=== PATIENT | female | born 1960 | race Caucasian/White ===

== ENCOUNTER → 2017-12-27 15:55 | Outpatient (CLI) | payer OTHER, SELFPAY ==
--- NOTE | 2017-12-27 15:58 | HPBD_ITS ---
STUDY: DUAL ENERGY X-RAY ABSORPTIOMETRY / DXA REASON FOR EXAM: Female, 57 years old. The patient is postmenopausal. Loss of height. TECHNIQUE: Bone Mineral Density (BMD) measurements of lumbar spine and bilateral hips were obtained. COMPARISON: None. FINDINGS: Lumbar Spine (L1-L4): g/cm2 (1.080) / T-score (-0.8) / Z-score (0.3) Findings are suggestive of normal bone density with a low fracture risk. Left Femur Total: g/cm2 (0.785) / T-score (-1.8) / Z-score (-0.9) Left Femoral Neck: g/cm2 (0.730) / T-score (-2.2) / Z-score (-1.0) Right Femur Total: g/cm2 (0.802) / T-score (-1.6) / Z-score (-0.8) Right Femoral Neck: g/cm2 (0.766) / T-score (-2.0) / Z-score (-0.8) HPBD/Dexa Bone Density Study (HP) IMPRESSION: The patient is considered osteopenic as outlined below according to World [employer] Organization (WHO) criteria with a moderate fracture risk. Reference Information: The T-score is the number of standard deviations above or below the standard which is normal for young adults at their peak bone mineral density. The World Health Organization (WHO) interprets the T-scores as follows: Above -1 Normal bone density Between -1 and -2.5 Osteopenia Equal to / or below -2.5 Osteoporosis As a practical clinical guideline, osteopenia may be graded as follows: Mild -1 through -1.5 Moderate -1.6 through -2.0 Severe -2.1 through -2.4 The Z-score is the number of standard deviations above or below age-matched controls. A Z-score of less than -1.5 would be considered abnormal. References: 1. NIH Osteoporosis and Related Bone Diseases http://www.osteo.org 2. International Society for Clinical Densitometry http://www.iscd.org 3. National Osteoporosis Foundation http://www.nof.org Electronically Signed: Jevon Norwood MD at 9:02 EST Tel [phone], Service support ,
== END ==
PROVIDERS: Family Provider Family Medicine; PCP Family Medicine; Visit Provider Family Medicine
DX: Z78.0 Asymptomatic menopausal state (principal)
CPT/HCPCS: 77080

== ENCOUNTER → 2018-05-24 16:00 | Outpatient (CLI) | payer OTHER, SELFPAY ==
--- NOTE | 2018-05-24 16:03 | RAD_ITS ---
STUDY: X-RAY - RIGHT FOOT CLINICAL: Female, 58 years old. Pain TECHNIQUE: 3 view(s) of the foot. COMPARISON: None. FINDINGS: There are hammertoe deformities of the fourth and fifth toes. There are no acute fractures. The soft tissues are normal. Electronically Signed: Ashish Cooper, at 7:43 EDT Tel , Service support , RAD/Foot min 3 Views
--- NOTE | 2018-05-24 16:03 | RAD_ITS ---
STUDY: X-RAY - LEFT FOOT CLINICAL: Female, 58 years old. Pain TECHNIQUE: 3 view(s) of the foot. COMPARISON: None. FINDINGS: There is a small plantar calcaneal spur. Normal visualized subtalar, talonavicular, calcaneocuboid, tarsal and tarsometatarsal articulations. Normal metatarsi. Normal metatarsophalangeal joint of the great toe. Normal tibial and fibular sesamoid bones. Normal interphalangeal joint of the great toe. Normal phalanges of the great toe. Normal second through fifth metatarsophalangeal joints. Normal interphalangeal joints and phalanges of the lesser toes. The soft tissue structures are unremarkable. RAD/Foot min 3 Views IMPRESSION: Small plantar calcaneal spur. No fracture Electronically Signed: Ashish Cooper, at 7:40 EDT Tel , Service support ,
--- NOTE | 2018-05-24 16:03 | RAD_ITS ---
STUDY: X-RAY - RIGHT HAND REASON FOR EXAM: Female, 58 years old. Pain TECHNIQUE: 3 view(s) of the hand. COMPARISON: None. FINDINGS: Degenerative changes of the first carpal metacarpal joint. The rest of the joints of the hand normal. The bones are also normal. There are no fractures.. RAD/Hand Min 3 Views IMPRESSION: Degenerative changes involving the first carpometacarpal joints. No fracture Electronically Signed: Ashish Cooper, at 7:32 EDT Tel , Service support ,
--- NOTE | 2018-05-24 16:03 | RAD_ITS ---
STUDY: X-RAY - LEFT HAND REASON FOR EXAM: Female, 58 years old. Injury TECHNIQUE: 3 view(s) of the hand. COMPARISON: None. FINDINGS: Normal radiocarpal articulation. Normal distal radioulnar joint. Normal visualized carpal bones. Normal carpal articulations Normal carpometacarpal articulation of the thumb. Normal second through fifth carpometacarpal joints. Normal metacarpi. Normal metacarpophalangeal joint of the thumb. Normal interphalangeal joint of the thumb. Normal proximal and distal phalanges of the thumb. Normal metacarpophalangeal joints of the second through fifth fingers. Normal proximal and distal interphalangeal joints of the second through fifth fingers. Normal phalanges of the second through fifth fingers. The soft tissue structures are unremarkable. RAD/Hand Min 3 Views IMPRESSION: Normal x-ray examination of the hand. No fracture Electronically Signed: Ashish Cooper, at 7:44 EDT Tel , Service support ,
== END ==
PROVIDERS: Family Provider Internal Medicine; PCP Internal Medicine; Visit Provider Internal Medicine
DX: M79.671 Pain in right foot (principal); M79.672 Pain in left foot; M19.049 Primary osteoarthritis, unspecified hand
CPT/HCPCS: 73130; 73630

== ENCOUNTER → 2018-06-13 15:23 | Outpatient (CLI) | payer OTHER, SELFPAY | PROVIDERS: Family Provider Family Medicine; PCP Family Medicine; Visit Provider Internal Medicine | DX: Z12.31 Encounter for screening mammogram for malignant neoplasm of breast (principal) | CPT/HCPCS: 77063; 77067 ==

== ENCOUNTER 2018-06-14 15:26 | Outpatient (RCR) | payer OTHER, SELFPAY ==
--- NOTE | 2018-08-05 11:15 | HP.PTEVAL_ITS ---
Patient's Visit Information VASILIY LUI is a 58 year old F referred to Physical Therapy by eNss Duggan DO with a diagnosis of Chronic low back pain. Date of Evaluation: 08/05/18 Physical Therapist: Mick Haley - Visit Plan Frequency: 2x /Week Duration: 4 Weeks Plan: Start with manual PT, stretching, postural education and lumbar ROM exercises. Progress functional strengthening as tolerated. - Subjective Subjective: Pt. is here today for her initial evaluation with diagnosis of chronic low back pain. Pt. reprots no mechanis of injury, but has had back pain for a number of years. Pt. does have osteo porosis. Pt. reprots low back pain with out radiation of symptoms. Pt. reports walking, standing, lifting twisting all bother her. Pt. reports decreased symptoms with supine lying down. Pt. reports having benefit with massage therapy as well. Pt. denies N/T in either LE and has no Le weakenss. Pt. reports no changes in B/B. Pt. has not had any imaging down either. Pt. is hopeful to reduce symptoms in order to get back to all recreational activites without lmiitations. - Pain lumbar spine Pain Intensity (Out of 10): 3 Pain Intensity Range: 1, 5 - Objective POSTURE: Pt. has decreased lumbar lordosis. Pt. has normal iliac creast heights. Pt. has normal wt. shift in stance. Pt. has rounded shoulders and overall slouched posture in sitting and standing. PALPATION: Pt. has tenderness along lumbar paraspinals, mild pain with spring testing of L2-L5 with hypombility noted. NEURO: Pt. has 2+ DTR of BLEs, pt. has normal sensation of bilateral LEs. Pt. is able to rise on heels and toes without issues, with balance aide. ROM: Pt. has normal hip and knee ROM bilaterally. Tightness noted in B HS. Lumbar spine: flexion- min loss increase NW, ext min loss increase NW, SB min loss bilat increase NE, rotation min loss bilat incerase NW. MMT: Pt. has 5/5 strength throughout bilateral LEs. Core strength- poor. GAIT: Pt. has normal gait pattern, except has increased lateral hip sway, no contralateral hip drop. STAIRS: Pt. has normal reciprocal pattern, but requries BHR to complete. - Goals Goal 1:: Pt. to be I with HEP. Goal Time Frame: 4-6 Weeks Goal 2:: Pt. to have increased lumbar ROM by 25% in all directions without increase in symptoms. Goal Time Frame: 4-6 Weeks Goal 3:: Pt. to sleep throughout the night without increase in symptoms. Goal Time Frame: 4-6 Weeks Goal 4:: Pt. to complete all recreational activities without limitations. Goal Time Frame: 4-6 Weeks Goal 5:: Pt. to walk unlimited distances without increase in symptoms. Goal Time Frame: 4-6 Weeks Goal 6:: Pt. to demonstrate improved posture throughout PT session indicating improved postural awareness. Goal Time Frame: 4-6 Weeks - Rehabilitation Potential Physical Therapy Diagnosis: Pt. has signs and symptoms consistent with chronic low back pain. Pt. has no radiating symptoms, and presents with more muscular pathology. Pt. would benefit from PT to reduce symptoms, decrease muscle tension, improve posture in order to get back to all recreational activities without limitations. - Anticipated Interventions Patient/Client Instruction: Educate patient on: Condition, Plan of Care, Risk Factors, Benefits of Fitness Program For the Purpose of:: To improve health and function, To foster healthy habits, To improve decision making, To facilitate caregiver knowledge, To improve self management, To prevent re-injury, To improve ability to perform tasks related to life management, To improve tolerance to ADL's Therapeutic Exercise to Include: Strength training, Power training, Endurance training, Body mechanics, Postural training, Flexibilty training, Passive ROM, Active ROM, Dynamic Lumbar Stabilization, Fidel Exercises For the Purpose of:: To decrease pain, To increase ROM, To improve nutrient delivery to tissue, To increase oxygenation perfusion, To improve muscle performance and motor function, To improve ability of physical actions for home/community/work/leisure, To improve health of tissue, To decrease soft tissue restriction Manual Therapy Techniques to Include: Mobilization For the Purpose of:: To decrease pain, To increase ROM, To improve nutrient delivery to tissue, To increase oxygenation perfusion, To improve muscle performance and motor function, To improve health of tissue, To decrease soft tissue restriction IF ES: Yes Thermo therapy (hot pack): Yes Ultrasound (thermal/non thermal): Yes For the Purpose of:: To decrease pain, To decrease swelling/inflammation, To increase ROM, To improve nutrient delivery to tissue, To improve muscle performance and motor function, To improve health of tissue, To decrease soft tissue restriction Thank you for the opportunity to evaluate your patient. For Medicare and Medicare HMO plans, please review the plan of care and approve it. It will need to be FAXED BACK to us at [phone] for Medicare purposes. Please let me know if there are questions or concerns regarding this plan of care. Physician Signature: Date:_
--- NOTE | 2018-08-16 09:17 | HP.PT.NRP ---
HP - Discharge Summary (1) - Patient Information VASILIY LUI was seen in my office for initial evaluation on 08/05/18. The following Plan of Care was established for this patient: Initial Frequency: 2x /Week Initial Duration: 4 Weeks - Anticipated Interventions Patient/Client Instruction: Educate patient on: Condition, Plan of Care, Risk Factors, Benefits of Fitness Program For the Purpose of:: To improve health and function, To foster healthy habits, To improve decision making, To facilitate caregiver knowledge, To improve self management, To prevent re-injury, To improve ability to perform tasks related to life management, To improve tolerance to ADL's Therapeutic Exercise to Include: Strength training, Power training, Endurance training, Body mechanics, Postural training, Flexibilty training, Passive ROM, Active ROM, Dynamic Lumbar Stabilization, Fidel Exercises For the Purpose of:: To decrease pain, To increase ROM, To improve nutrient delivery to tissue, To increase oxygenation perfusion, To improve muscle performance and motor function, To improve ability of physical actions for home/community/work/leisure, To improve health of tissue, To decrease soft tissue restriction Manual Therapy Techniques to Include: Mobilization For the Purpose of:: To decrease pain, To increase ROM, To improve nutrient delivery to tissue, To increase oxygenation perfusion, To improve muscle performance and motor function, To improve health of tissue, To decrease soft tissue restriction IF ES: Yes Thermo therapy (hot pack): Yes Ultrasound (thermal/non thermal): Yes For the Purpose of:: To decrease pain, To decrease swelling/inflammation, To increase ROM, To improve nutrient delivery to tissue, To improve muscle performance and motor function, To improve health of tissue, To decrease soft tissue restriction This patient was last seen in our office 06/14/18. Pertinent comments regarding their Physical therapy will appear below: Pt. was seen for her chronic low back pain in PT. Pt. was seen for her initial evaluation, but not seen since. Pt. will be DC from PT at this point in time. At this point I will be discontinuing this patient from physical therapy. I would be happy to see this patient again in the future if found appropriate by the physician. Thank you! Mick Haley
== END 2018-06-14 19:00 | disposition home or self-care (01) ==
LOC: PT 15:26
PROVIDERS: Family Provider Internal Medicine; PCP Internal Medicine; Visit Provider Internal Medicine
DX: M54.9 Dorsalgia, unspecified (principal); G89.29 Other chronic pain
CPT/HCPCS: 97162

== ENCOUNTER → 2018-08-14 16:35 | Outpatient (CLI) | payer OTHER, SELFPAY ==
[2018-08-21 13:12] LABS: HPV Reflexed? NOT INDICATED
== END ==
PROVIDERS: Visit Provider Obstetrics & Gynecology
DX: Z12.4 Encounter for screening for malignant neoplasm of cervix (principal)
CPT/HCPCS: 88175; G0145

== ENCOUNTER → 2019-02-25 14:40 | Outpatient (CLI) | payer OTHER, SELFPAY ==
--- NOTE | 2019-02-25 14:49 | CT_ITS ---
STUDY: CT BRAIN WITH AND WITHOUT CONTRAST REASON FOR EXAM: Female, 58 years old. New Onset of migraine, hypertension recently. Asthma RADIATION DOSAGE (If Supplied By Facility): CTDIvol = ( 44.99 ) mGy, DLP = ( 1513.48 ) mGycm TECHNIQUE: Transaxial CT imaging of the brain was performed pre and post contrast administration. The examination was performed with intravenous administration of 50 IV Isovue 370. Individualized dose optimization techniques were used for this CT. COMPARISON: None. FINDINGS: Normal soft tissue structures. Normal calvarium. Normal size ventricles and extra-axial spaces for the patient's age. Left periventricular white matter low-attenuation likely remote infarct. Normal basal ganglia and thalami. Normal brainstem. Normal cerebellum. There is no intracranial hemorrhage. There are no findings of an acute ischemic infarction. Normal visualized paranasal sinuses. The bilateral mastoid air cells are clear. 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 Otherwise age-appropriate CT examination brain with and without contrast. Electronically Signed: Cecily Arnett MD at 6:45 EDT , Service support ,
== END ==
PROVIDERS: Family Provider Internal Medicine; PCP Internal Medicine; Referring Provider Internal Medicine; Visit Provider Internal Medicine
DX: G43.909 Migraine, unspecified, not intractable, without status migrainosus (principal)
CPT/HCPCS: 70470; Q9967

== ENCOUNTER → 2019-05-20 15:41 | Outpatient (CLI) | payer OTHER, SELFPAY ==
--- NOTE | 2019-05-20 16:00 | MRI_ITS ---
STUDY: MRI BRAIN WITH AND WITHOUT CONTRAST REASON FOR EXAM: Female, 59 years old. Left sided weakness TECHNIQUE: Standardized multiplanar fat and water weighted pulse sequences were obtained. 13 IV Dotarem was administered for the contrast portion of the examination. COMPARISON: February 25, 2019 FINDINGS: Normal size of the ventricles and extra-axial spaces for the patient's age. Minor periventricular white matter ischemic changes are seen without mass effect or restricted diffusion.. Normal bilateral basal ganglia. Normal thalami. There is no extra-axial fluid accumulation. Normal flow voids within the major intracranial circulation suggesting patency by spin echo criteria. Normal venous enhancement. There is no enhancing intra-axial or extra-axial abnormality. Normal sella turcica, pituitary gland, infundibular stalk, optic chiasm and hypothalamus. Normal tectal plate and pineal gland. Normal midbrain, hermelinda and medulla. Normal cerebellum. Normal basal cisterns. Normal bilateral temporal bones. Normal bilateral internal auditory canals. No demonstrated orbital abnormality, within the constraints of a routine brain study. Normal visualized paranasal sinuses. Normal calvarium and skull base. Normal visualized soft tissue structures. Normal visualized upper cervical spine. MRI/Brain W/WO Contrast IMPRESSION: Minor periventricular white matter chronic ischemic changes without evidence for acute infarct. No abnormal enhancement following contrast administration Electronically Signed: Mike Basilio MD at 16:53 EDT , Service support ,
== END ==
PROVIDERS: Family Provider Internal Medicine; PCP Internal Medicine; Referring Provider Internal Medicine; Visit Provider Internal Medicine
DX: Z86.73 Personal history of transient ischemic attack (TIA), and cerebral infarction without residual deficits (principal)
CPT/HCPCS: 70553; A9575

== ENCOUNTER 2019-05-23 15:30 | Outpatient (RCR) | payer OTHER, SELFPAY ==
--- NOTE | 2019-04-08 16:08 | HP.PTEVAL ---
Patient's Visit Information VASILIY LUI is a 59 year old F referred to Physical Therapy by Britt Mace with a diagnosis of L achilles tendonitis and planarfasciaitis. Date of Evaluation: 04/08/19 Physical Therapist: Emeka Gomez, PT, ATC - Visit Plan Frequency: 2x /Week Duration: 4-6 Weeks Plan: R gastroc and soleus stretching, DTR, foam roller, stick roll out, US, and Ionto with Dex - Subjective Findings: Pt reports her R heel has been sore 4 mos. Pt reports she has had pain in the past, but notes this is the worst her pain has been. Pt reports she is very active as she walks and swims everyday. 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 Pt reports she always has pain after these ex's. Pt notes if she travels and takes some time off, her pain will get better. Pt notes no tingling or numbness in R LE. Pt reports ice helps with pain, but she doesnt ice often. Pt reports pain is always worse in the AM. Difficulty with getting to sleep secondary to pain. Pt has had xrays, which revealed a bone spur. 1/10 pain at rest, 8/10 at worst (while walking) - Pain R heel pain Pain Intensity (Out of 10): 1 Pain Intensity Range: 8 - Objective Neuro: B LE sensation is WNL to light touch. B patellar reflex= 2/3. Palpation: Pt is very tender on the calcaneal tubercle and medial/lateral heel. Enlarged calcaneal tubercle. ROM: L ankle DF= 2, PF= 65 degrees; R ankle DF= 2, PF= 60. MMT: B ankles 5/5 throughout. Gait: Pt has a rigid arch. Pt is pes cavus, and has late pronation with ambulation - Goals Goal 1:: Decrease R heel pain x 50 % to aid with sleep Goal Time Frame: 4-6 Weeks Goal 2:: Increase R ankle DF ROM x 10 degrees to aid with decreasing pain Goal Time Frame: 4-6 Weeks Goal 3:: I with HEP Goal Time Frame: 4-6 Weeks - Rehabilitation Potential Physical Therapy Diagnosis: Pt has limited DF ROM in R ankle and pain in R heel secondary to R plantarfasciatis and achilles tendonitis Rehabilitation Potential: Good - Anticipated Interventions Patient/Client Instruction: Educate patient on: Condition, Plan of Care For the Purpose of:: To improve self management Therapeutic Exercise to Include: Strength training, Flexibilty training, Passive ROM, Active ROM For the Purpose of:: To decrease pain, To increase ROM Ultrasound (thermal/non thermal): Yes For the Purpose of:: To decrease pain Thank you for the opportunity to evaluate your patient. For Medicare and Medicare HMO plans, please review the plan of care and approve it. It will need to be FAXED BACK to us at [phone] for Medicare purposes. For Medicare only, by signing this I certify the plan of care. Please let me know if there are questions or concerns regarding this plan of care. Physician Signature: Date:
--- NOTE | 2019-08-19 10:40 | HP.PT.NRP ---
HP - Discharge Summary (1) - Patient Information VASILIY LUI was seen in my office for initial evaluation on 04/08/19. The following Plan of Care was established for this patient: Initial Frequency: 2x /Week Initial Duration: 4-6 Weeks - Anticipated Interventions Patient/Client Instruction: Educate patient on: Condition, Plan of Care For the Purpose of:: To improve self management Therapeutic Exercise to Include: Strength training, Flexibilty training, Passive ROM, Active ROM For the Purpose of:: To decrease pain, To increase ROM Ultrasound (thermal/non thermal): Yes For the Purpose of:: To decrease pain This patient was last seen in our office . Pertinent comments regarding their Physical therapy will appear below: Pt was treated for 8 PT visits through the date of 05/23/19. Pt has not returned through todays date and is therefore discontinued at this time. At this point I will be discontinuing this patient from physical therapy. I would be happy to see this patient again in the future if found appropriate by the physician. Thank you! Emeka Gomez, PT, ATC
== END 2019-05-23 19:00 | disposition home or self-care (01) ==
LOC: PT 15:30
PROVIDERS: Family Provider Internal Medicine; PCP Internal Medicine; Referring Provider Podiatrist; Visit Provider Podiatrist
DX: M76.61 Achilles tendinitis, right leg (principal); M77.31 Calcaneal spur, right foot
CPT/HCPCS: 97033; 97035; 97161

== ENCOUNTER → 2019-05-26 09:01 | Outpatient (CLI) | payer OTHER, SELFPAY ==
--- NOTE | 2019-05-26 09:06 | ECHOD_ITS ---
Reason For Study: TIA Procedure This was a 2D Doppler, Color Flow transthoracic echocardiogram. The exam was of adequate technical quality. Exam performed in department. Left Ventricle Normal LV size. Left ventricular systolic function is normal. The estimated ejection fraction is 65 %. No evidence for diastolic dysfunction. No regional wall motion abnormalities noted. Right Ventricle Normal RV size. Normal systolic function. Atria Normal left atrium. Normal right atrium. No doppler evidence for ASD. Bubble contrast study negative for right to left interatrial shunt. Mitral Valve There is no mitral annular calcification. Normal mitral valve. Trivial mitral valve insufficiency. Tricuspid Valve Normal tricuspid valve. Trivial tricuspid valve insufficiency. Right ventricular systolic pressure estimated to be 28 mmHg. Aortic Valve Trisinus/trileaflet aortic valve. Mild focal aortic valve calcification. Pulmonic Valve The pulmonic valve is not well visualized. Mild (1+) pulmonic valve insufficiency. Great Vessels Normal sized aortic root. Pericardium/Pleural No pericardial effusion. Medication Performed a rapid injection of agitated mix of 9 cc saline and 1cc air to assess for atrial septal defect. MMode/2D Measurements & Calculations LVIDd: 4.3 cm IVSd: 0.87 cm Ao root diam: 2.9 cm LVIDs: 2.5 cm LVPWd: 0.90 cm RVDd: 4.0 cm FS: 42.2 % LAV(MOD-bp): 37.0 ml LVAd ap4: 22.9 cm2 SV(MOD-sp4): 43.2 ml LAV(MOD-bp) Indexed: 22.3 ml/m2 EDV(MOD-sp4): 62.9 ml LAV(MOD-sp2): 43.7 ml EDV(sp4-el): 63.5 ml LAV(MOD-sp4): 27.4 ml LVAs ap4: 10.9 cm2 ESV(MOD-sp4): 19.7 ml ESV(sp4-el): 19.2 ml EF(MOD-sp4): 68.7 % EF(sp4-el): 69.7 % SV(sp4-el): 44.2 ml LA A4 area: 11.5 cm2 LA dimension(2D): 3.6 cm RA A4 area: 11.5 cm2 Doppler Measurements & Calculations MV E max bairon: 53.4 cm/sec Lat Peak E' Bairon: 6.8 cm/sec Med Peak E' Bairon: 6.3 cm/sec MV A max bairon: 58.8 cm/sec E/E' lat: 7.9 E/E' med: 8.5 MV E/A: 0.91 Ao V2 max: 119.1 cm/sec LV V1 max: 102.5 cm/sec PA V2 max: 100.2 cm/sec Ao max P.7 mmHg LV V1 max P.2 mmHg Ao V2 mean: 94.9 cm/sec Ao mean P.8 mmHg Ao V2 VTI: 27.0 cm TR max bairon: 248.1 cm/sec TR max P.6 mmHg Interpretation Summary Left ventricular systolic function is normal. The estimated ejection fraction is 65 %. Trivial mitral valve insufficiency. Trivial tricuspid valve insufficiency. Mild focal aortic valve calcification. Mild (1+) pulmonic valve insufficiency. Right ventricular systolic pressure estimated to be 28 mmHg. No evidence for diastolic dysfunction. Bubble contrast study negative for right to left interatrial shunt. Ordering Physician: Ness Duggan Referring Physician: Ness Duggan Performed By: Rosenda Galvin, HARISH, RVT
--- NOTE | 2019-05-26 09:07 | CDU_ITS ---
Reason For Study: TIA Rt. Velocities/BP Lt. Velocities/BP Prox CCA 63/17.3 cm/sec. Prox CCA 79.4/21.2 cm/sec. Mid CCA 73.4/21.3 cm/sec. Mid CCA 68.4/20.1 cm/sec. Dist CCA 74.7/23.9 cm/sec. Dist CCA 75/26.7 cm/sec. Prox ICA 72.1/20 cm/sec. Prox ICA 56.9/20 cm/sec. Mid ICA 89/26.7 cm/sec. Mid ICA 98.6/34.8 cm/sec. Dist ICA 90.6/27 cm/sec. Dist ICA 79/33.5 cm/sec. Rt. ICA/CCA = 1.2. Lt. ICA/CCA = 1.3. Prox ECA 74.7/10.8 cm/sec. Prox ECA 62.9/6.9 cm/sec. Rt. Vert. 47.5/12.6 cm/sec. Lt. Vert. 45.4 cm/sec. Right Extracranial There is intimal thickening but no significant atherosclerotic plaque noted in the right common carotid artery. There is intimal thickening but no significant atherosclerotic plaque noted in the right internal carotid artery. There is intimal thickening but no significant atherosclerotic plaque noted in the right external carotid artery. Antegrade flow is noted in the right vertebral artery. Left Extracranial There is intimal thickening but no significant atherosclerotic plaque noted in the left common carotid artery. There is intimal thickening but no significant atherosclerotic plaque noted in the left internal carotid artery. There is intimal thickening but no significant atherosclerotic plaque noted in the left external carotid artery. Antegrade flow is noted in the left vertebral artery. Procedure Carotid Duplex [id number]. Exam performed in department. Interpretation Summary No significant atherosclerotic plaque or stenosis noted in the internal carotid arteries bilaterally. Flow within the vertebral arteries is antegrade bilaterally. Ordering Physician: Ness Duggan Referring Physician: Ness Duggan Performed By: Muriel Cain RVT
== END ==
PROVIDERS: Family Provider Internal Medicine; PCP Internal Medicine; Referring Provider Internal Medicine; Visit Provider Internal Medicine
DX: Z86.73 Personal history of transient ischemic attack (TIA), and cerebral infarction without residual deficits (principal)
CPT/HCPCS: 93306; 93880; A4216

== ENCOUNTER → 2019-06-16 11:06 | Outpatient (CLI) | payer OTHER, SELFPAY ==
--- NOTE | 2019-06-16 11:09 | BI_ITS ---
MAMMOGRAPHY - BILATERAL SCREENING REASON FOR EXAM: Female, 59 years old. Routine annual screening examination. PERTINENT HISTORY: Non-contributory. TECHNIQUE: Digital bilateral breast michelle (3D mammographic acquisition) in the CC and MLO projections. 2-D mediolateral oblique (MLO) and craniocaudad (CC) views of both breasts were obtained. CAD: Full Field Digital Mammography with Computer Added Detection was performed. COMPARISON: Comparison is made with prior examination dated June 13, 2018 and May 28, 2017. FINDINGS: Breast Composition: The breasts are heterogeneously dense, which may obscure small masses. There are no dominant masses or suspicious calcifications. Stable benign appearing bilateral axillary lymph nodes. A tissue clip marker is once again seen in the upper lateral aspect of the left breast. No other significant abnormalities are identified. There has been no significant change since the prior study. BI/SCREEN MAMM (CAD) W/MICHELLE BILAT IMPRESSION: Stable bilateral screening mammogram. Yearly follow-up mammogram recommended. (A) ASSESSMENT CATEGORY: BIRADS Category 2: Benign. A letter regarding these results will be sent to the patient by the facility within 30 days. Approximately 10% of breast cancers are not detected by mammography. A normal mammogram should not delay biopsy of a clinically suspicious abnormality. [id number] Electronically Signed: Jevon Norwood, at 12:56 EDT , Service support ,
== END ==
PROVIDERS: Family Provider Internal Medicine; PCP Internal Medicine; Referring Provider Internal Medicine; Visit Provider Internal Medicine
DX: Z12.31 Encounter for screening mammogram for malignant neoplasm of breast (principal)
CPT/HCPCS: 77063; 77067

== ENCOUNTER → 2019-07-04 07:24 | Outpatient (CLI) | payer OTHER, SELFPAY ==
--- NOTE | 2019-07-04 07:45 | MRI_ITS ---
STUDY: MRI RIGHT ANKLE WITHOUT CONTRAST REASON FOR EXAM: Female, 59 years old. Ankle pain TECHNIQUE: Standardized fat and water weighted pulse sequences were obtained in all 3 orthogonal planes. COMPARISON: None. FINDINGS: Normal subcutis adipose space. Normal posterior tibialis tendon. Normal flexor digitorum longus tendon. Normal flexor hallucis longus tendon. Normal peroneus longus and brevis tendons. Normal tibialis anterior tendon. Normal extensor hallucis longus tendon. Normal extensor digitorum longus tendons. There is tendinosis of the Achilles tendon with diffuse tendon thickening, but without a partial, intratendinous, or full-thickness tear. Edema of Kager's fat pad consistent with Achilles peritendinitis is Normal plantar fascia. Normal plantar calcaneal tubercles. Normal intrinsic muscles of the rearfoot. Normal distal tibiofibular syndesmotic ligamentous complex. Normal lateral ligamentous complex. Normal subtalar ligaments and sinus tarsi. Normal deltoid ligamentous complexes. Normal plantar calcaneonavicular (spring) ligament. There is a joint effusion of the tibiotalar articulation with capsular distension. Normal talar dome. Normal subtalar articulations. Normal talonavicular articulation. Normal calcaneocuboid articulation. Normal navicular-cuneiform articulations. MRI/Lower Ext Joint Only (Routine) IMPRESSION: Insertional Achilles tendinitis with peritendinitis and mild stress reaction of the calcaneus is but no tear. Electronically Signed: Biju Fenton MD at 14:25 EDT Tel , Service support ,
== END ==
PROVIDERS: Family Provider Internal Medicine; PCP Internal Medicine; Referring Provider Podiatrist; Visit Provider Podiatrist
DX: M76.61 Achilles tendinitis, right leg (principal)
CPT/HCPCS: 73721

== ENCOUNTER → 2019-08-29 13:55 | Outpatient (CLI) | payer OTHER, SELFPAY ==
--- NOTE | 2019-08-29 14:03 | RAD_ITS ---
STUDY: X-RAY - CERVICAL SPINE REASON FOR EXAM: Female, 59 years old. Neck pain. TECHNIQUE: 6 view(s) of the cervical spine were obtained. COMPARISON: None FINDINGS: There are degenerative changes of the anterior atlantoaxial articulation. Normal odontoid process. There is mild reversal of the upper cervical lordosis. There is multi-level endplate spondylosis. There is multi-level degenerative disc disease with multilevel disc space narrowing. This is most marked at C4-5 and C5-6. Normal visualized intervertebral neuroforamina. There is no evidence of acute fracture or loss of vertebral axial height. There is maintenance of normal alignment. The soft tissue structures are unremarkable. RAD/Cerv Spine 4 or 5 Views IMPRESSION: Reversal normal cervical lordosis with degenerative changes of the mid cervical spine. Electronically Signed: Parihs Nieto DO at 16:53 EST Tel [phone], Service support ,
== END ==
PROVIDERS: Family Provider Internal Medicine; PCP Internal Medicine; Referring Provider Internal Medicine; Visit Provider Internal Medicine
DX: M54.2 Cervicalgia (principal)
CPT/HCPCS: 72050

== ENCOUNTER → 2019-10-07 15:25 | Outpatient (CLI) | payer OTHER, SELFPAY ==
--- NOTE | 2019-10-07 16:00 | MRI_ITS ---
STUDY: MRI CERVICAL SPINE WITHOUT CONTRAST REASON FOR EXAM: Female, 59 years old. Neck pain radiating to the hands bilaterally TECHNIQUE: Standardized fat and water weighted pulse sequences were obtained in the sagittal and axial planes. COMPARISON: None FINDINGS: Normal foramen magnum and brainstem-cervical cord junction. Normal craniovertebral junction. Normal anterior atlantoaxial articulation. Normal odontoid process. Normal cervical lordosis. Normal vertebral bodies and posterior osseous elements. C2-3: Normal endplates. Normal disc height, signal and morphology. Normal central canal and intervertebral neural foramina. C3-4: Normal endplates. Normal disc height, signal and morphology. Normal central canal and intervertebral neural foramina. C4-5: Normal endplates. Normal disc height, signal and morphology. Normal central canal and moderate narrowing right greater than left intervertebral neural foramina. C5-6: Normal endplates. Decreased disc height, signal and morphology. Normal central canal and severe narrowing right intervertebral neural foramina. Small right perineural cyst. C6-7: Normal endplates. Normal disc height, signal and morphology. Normal central canal and moderately severe narrowing right intervertebral neural foramina. Small left perineural cyst. C7-T1: Normal endplates. Normal disc height, signal and morphology. Normal central canal and intervertebral neural foramina. Small right neural perineural cyst. Normal cervical cord. Normal visualized soft tissue structures. MRI/Spine Cervical (Routine) IMPRESSION: Multilevel neural foraminal narrowing on the right due to uncinate spondylosis. Electronically Signed: Sohail Spence MD at 21:54 EST , Service support ,
== END ==
PROVIDERS: Family Provider Internal Medicine; PCP Internal Medicine
DX: R20.2 Paresthesia of skin (principal)
CPT/HCPCS: 72141

== ENCOUNTER → 2019-11-25 | Outpatient (CLI) | payer OTHER, SELFPAY ==
--- NOTE | 2019-11-25 14:44 | RAD_ITS ---
STUDY: X-RAY - LUMBAR SPINE REASON FOR EXAM: Female, 59 years old. LBP TECHNIQUE: 5 view(s) of the lumbar spine were obtained. COMPARISON: None FINDINGS: There is straightening of the normal lumbar lordosis. There is scoliosis of the lumbar spine, convexity to the left. There is a normal alignment of the vertebrae. There is multilevel endplate spondylosis of the lumbar vertebrae. There is multi-level degenerative disc disease with multi-level disc space narrowing. There is no demonstrated fracture. There is no demonstrated spondylolysis of the pars interarticulares. The soft tissue structures are unremarkable. RAD/L/S Spine Min 4 Views IMPRESSION: Spondylosis/degenerative disease with no acute fracture or subluxation. Electronically Signed: Ciara Steve MD at 3:34 EST , Service support ,
== END | disposition home or self-care (01) ==
PROVIDERS: PCP Internal Medicine; Referring Provider Internal Medicine; Visit Provider Internal Medicine
DX: M54.5 Low back pain (principal)
CPT/HCPCS: 72110

== ENCOUNTER → 2019-12-11 | Outpatient (CLI) | payer OTHER, SELFPAY ==
--- NOTE | 2019-12-11 15:54 | MRI_ITS ---
STUDY: MRI LUMBAR SPINE WITHOUT CONTRAST REASON FOR EXAM: Female, 59 years old. Back pain, sciatica TECHNIQUE: Standardized fat and water weighted pulse sequences were obtained in the sagittal and axial planes. COMPARISON: 25 November 2025 FINDINGS: There is mild levoscoliosis.There is grade 1 degenerative anterolisthesis of L3 on L4, less than 3 mm. The rest of the spine is aligned. Vertebral bodies are intact with normal marrow. There is mild subchondral L3-L4 degenerative change. Paraspinous soft tissues are normal. Conus medullaris terminates at L1 with normal cauda equina. Thecal sac is patent. There are multilevel bilateral moderate foraminal stenoses. MRI/Spine Lumbar (Routine) IMPRESSION: 1. Patent thecal sac. 2. Bilateral moderate foraminal stenoses. Electronically Signed: Sander Marcano, at 18:08 EST Tel , Service support ,
== END | disposition home or self-care (01) ==
LOC: MRI 15:46
PROVIDERS: PCP Internal Medicine; Referring Provider Internal Medicine; Visit Provider Internal Medicine
DX: M54.16 Radiculopathy, lumbar region (principal)
CPT/HCPCS: 72148

== ENCOUNTER → 2019-12-30 | Outpatient (CLI) | payer OTHER, SELFPAY ==
--- NOTE | 2019-12-30 13:07 | BD_ITS ---
STUDY: DUAL ENERGY X-RAY ABSORPTIOMETRY / DXA REASON FOR EXAM: Female, 59 years old. 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 COMPARISON: Comparison is made with prior study dated December 27, 2017. FINDINGS: Lumbar Spine (L1-L4): g/cm2 (1.450) / T-score (2.1) / Z-score (3.3) Findings are suggestive of normal bone density with a low fracture risk. Left Femur Total: g/cm2 (0.821) / T-score (-1.5) / Z-score (-0.5) Left Femoral Neck: g/cm2 (0.747) / T-score (-2.1) / Z-score (-0.8) Right Femur Total: g/cm2 (0.842) / T-score (-1.3) / Z-score (-0.4) Right Femoral Neck: g/cm2 (0.796) / T-score (-1.7) / Z-score (-0.5) The T-Scores on the most recent prior examination were: Lumbar Spine (L1-L4): There has been improvement of bone density since the previous examination. Left Femur Total: which represents an improvement of 4.6%. Right Femur Total: which represents an improvement of 5%. BD/Dexa Bone Density Study IMPRESSION: The patient is considered osteopenic as outlined below according to World [employer] Organization (WHO) criteria with a moderate fracture risk. There has been improvement of bone density since the previous examination. Reference Information: The T-score is the number of standard deviations above or below the standard which is normal for young adults at their peak bone mineral density. The World Health Organization (WHO) interprets the T-scores as follows: Above -1 Normal bone density Between -1 and -2.5 Osteopenia Equal to / or below -2.5 Osteoporosis As a practical clinical guideline, osteopenia may be graded as follows: Mild -1 through -1.5 Moderate -1.6 through -2.0 Severe -2.1 through -2.4 The Z-score is the number of standard deviations above or below age-matched controls. A Z-score of less than -1.5 would be considered abnormal. References: 1. NIH Osteoporosis and Related Bone Diseases http://www.osteo.org 2. International Society for Clinical Densitometry http://www.iscd.org 3. National Osteoporosis Foundation http://www.nof.org Electronically Signed: Jevon Norwood, at 15:02 EDT , Service support ,
== END | disposition home or self-care (01) ==
LOC: OPBD 13:00
PROVIDERS: PCP Internal Medicine; Referring Provider Internal Medicine; Visit Provider Internal Medicine
DX: Z78.0 Asymptomatic menopausal state (principal)
CPT/HCPCS: 77080

== ENCOUNTER 2020-03-12 15:00 | Outpatient (RCR) | payer OTHER, SELFPAY ==
--- NOTE | 2020-01-01 13:51 | HP.PTEVAL_ITS ---
Patient's Visit Information VASILIY LUI is a 59 year old F referred to Physical Therapy by Ness Duggan DO with a diagnosis of LUMBAR RADICULOPATHY. Date of Evaluation: 01/01/20 Physical Therapist: Caitlin Duval PT, Cert MDT - Visit Plan Frequency: 2-3x /Week Duration: 4-6 Weeks Plan: AQUATIC THERAPY FOR PAIN RELEIF, POSTURE CORRECTION/STRENGTHENING, INSTRUCTION IN APPROPRIATE BODY MECHANICS AND ACTIVITY MODIFICATIONS. DLS STARTING WITH A NEUTRAL SPINE PROGRESSING ROM TOLERATED. SIRISHA LE ROM, STRETCHING AND STRENGTHENING. HEP INSTRUCTION. 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 EXERCISES: SWIMS AND WALKS. ALSO DOES PILATES AND LIFTS WEIGHTS. Disability: NO. Present symptoms: LOW BACK PAIN. LEFT THIGH, LEG PAIN. LEFT THIGH AND LEG NUMBNESS AND TINGLING. NUMBNESS IN FOOT. Present since: CHRONIC. Pain Scale: WORST 7/10, LEAST 1/10. Currently: 10/31. Commenced as a result of: NO APPARENT REASON. Symptoms at onset: LOW BACK. Worse: BENDING, RETURNING FROM BENDING, STAYING IN ONE POSITION - SITTING OR STANDING. BENDING AND LIFTING TOGETHER. TRAVEL. ESPECIALLY BY PLANE. TRAVELS A LOT BY PLANE FREQUENTLY. 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 Better: INVERSION TABLE, CELEBREX, ALEVE, CORE STRENGTH, CHANGE OF POSITION, HEAT, MASSAGE, CHIROPRACTOR. Disturbed sleep: YES. Previous history/Previous treatment: CHIROPRACTOR, MASSAGE THERAPY, EXERCISE, PHYSICAL THERAPY, DIANA'S. NO BACK SURGERY. Coughing/sneezing/straining: POSITIVE. Gait: NORMAL. Difficulty initiating urinatin: NO. Accidents: FALLS - MOST RECENT FALL WAS ABOUT A MONTH AGO - TRIPPED BY DOG. Unexplained weight loss: NO. Imaging: RECENT MRI AND X-RAY OF LOW BACK - There is straightening of the normal lumbar lordosis. There is scoliosis. of the lumbar spine, convexity to the left. There is a normal alignment of. the vertebrae. There is multilevel endplate spondylosis of the lumbar vertebrae. There is. multi-level degenerative disc disease with multi- level disc space. narrowing. There is no demonstrated fracture. There is no demonstrated. spondylolysis of the pars interarticulares. The soft tissue structures are unremarkable. MRI: RE-READ OF MRI PENDING. PMH: HTN, INSOMNIA, OSTEOPENIA. Recent major surgery: UNREMARKABLE. OTHER: AWAITING ZAHRAA'T WITH DR. WHEELER FOR DIANA. PATIENT REPORTS SURGICAL CONSULT ALSO RECOMMENDED BUT SHE DECLINED. - Objective Sitting/Standing Posture: POOR. SCOLIOSIS. Lordosis: REDUCED. Lateral shift: NO. Relevant shift: N/A. Active Correction of posture: BETTER. Other O bservations: INDEP GAIT AND TRANSFERS. SIT TO STAND WITHOUT UE'S IS DIFFICULT. ONLY ABLE TO STAND STILL FOR ABOUT 2 MINUTES BEFORE SHIFTING POSITION TO GET RELIEF. Motor deficit: SIRISHA LE'S 5/5 WITH MMT'ING INCLUDING EHL. PATIENT ABLE TO INDEP'LY HEEL WALK AND TOE WALK IN CLINIC TODAY. Sensory deficit: SIRISHA LE LIGHT TOUCH SENSATION INTACT AND SYMMETRICAL. ROM deficit: SIRISHA LE'S WFL. Reflexes: 2/3 SIRISHA LE'S. Dural Signs: NEGATIVE SIRISHA LE'S. Lumbar mvmt loss: flex - NIL. ext - MOD. R SG - MOD. L SG - MOD. PATIENT C/O LBP AND RIGHT LE PAIN WITH LUMBAR ROM TESTING ALL PLANES AND HAS GREAT DIFFICULTY RETURNING FROM FLEXION IN STANDING. Core strength: FAIR. Palpation: NO ACUTE TENDERNESS WITH PALPATION OF THE LOWER THORACIC AND LUMBAR SPINE BUT VERY GUARDED PARASPINALS. TREATMENT: NEUROMUSCULAR REEDUCATION - RETRAINING OF MVMT AND POSTURE FOR SITTING, LYING AND STANDING ACTIVITIES. - Goals Goal 1:: DECREASE C/O LOW BACK AND LLE SX'S. Goal Time Frame: 4-6 Weeks Goal 2:: IMPROVE LIFTING, BENDING, SITTING, STANDING, SLEEP, TRAVEL AND HOMEMAKING FUNCITON. Goal Time Frame: 4-6 Weeks Goal 3:: INSTRUCT IN PROPHYLAXIS Goal Time Frame: 4-6 Weeks - Rehabilitation Potential Rehabilitation Potential: Fair - Anticipated Interventions Patient/Client Instruction: Educate patient on: Condition, Plan of Care, Risk Factors, Benefits of Fitness Program For the Purpose of:: To improve self management Therapeutic Exercise to Include: Strength training, Body mechanics, Postural training, Flexibilty training, Neuromotor development, In an aquatic setting, Dynamic Lumbar Stabilization, Scapular Strength/Stabilization For the Purpose of:: To decrease pain, To increase ROM, To improve muscle performance and motor function, To increase tolerance to activity/condition/position, To improve ability of physical actions for home/community/work/leisure Thank you for the opportunity to evaluate your patient. For Medicare and Medicare HMO plans, please review the plan of care and approve it. It will need to be FAXED BACK to us at [phone] for Medicare purposes. For Medicare only, by signing this I certify the plan of care. Please let me know if there are questions or concerns regarding this plan of care. Physician Signature:__ Date:
--- NOTE | 2020-01-30 15:24 | HP.PTREVAL ---
Ness Duggan, DO, It has been my pleasure to treat VASILIY LUI over the last 10 visits for LUMBAR RADICULOPATHY. Please see the progress note below for an update on the physical therapy plan of care! Subjective: PATIENT REPORTS SHE IS GETTING STRONGER AND HER POSTURE IS GETTING BETTER. STATES HER GLUTS ARE STILL WEAK BUT STARTING TO FEEL A DIFFERENCE. DOING HEP. PATIENT REPORTS SHE HAD A CONSULT WITH DR. WHEELER AND AN INJECTION WAS RECOMMENDED BUT NOT SCHEDULED DUE TO THE VIRUS. FOLLOW UP PENDING NEXT MONTH. Objective/Function: PATIENT WAS SEEN TODAY FOR RE-ASSESSMENT OF PROGRESS TOWARD THE SET PT GOALS AND THE NEED FOR FURTHER PHYSICAL THERAPY VS READINESS FOR DISCHARGE. SHE IS A GOOD CANDIDATE TO CONTINUE PT BASED ON PROGRESS MADE AND ROOM FOR FURTHER IMPROVEMENT. PATIENT IS AGREEABLE WITH CONTINUING PT. UPON EXAM TODAY: INDEP GAIT AND TRANSFERS. SIT TO STAND WITHOUT UE'S IS STILL DIFFICULT. ONLY ABLE TO STAND STILL FOR ABOUT 3 MINUTES BEFORE SHIFTING POSITION TO GET RELIEF. Motor deficit: SIRISHA LE'S 5/5 WITH MMT'ING. Sensory deficit: SIRISHA LE LIGHT TOUCH SENSATION INTACT AND SYMMETRICAL. ROM deficit: SIRISHA LE'S WFL. Dural Signs: NEGATIVE LEFT AND POSITIVE RIGHT LE. Lumbar mvmt loss: flex - NIL. ext - MOD. R SG - MOD. L SG - MIN. PATIENT C/O LBP BUT NOT LE PAIN WITH LUMBAR ROM TESTING ALL PLANES AND HAS SOME BUT LESS DIFFICULTY RETURNING FROM FLEXION IN STANDING. Core strength: FAIR Plan Plan: CONTINUE 2X'S A WK X 5 WKS FOR AQUATIC THERAPY FOR PAIN RELEIF, POSTURE CORRECTION/STRENGTHENING, INSTRUCTION IN APPROPRIATE BODY MECHANICS AND ACTIVITY MODIFICATIONS. DLS STARTING WITH A NEUTRAL SPINE PROGRESSING ROM TOLERATED. SIRISHA LE ROM, STRETCHING AND STRENGTHENING. HEP INSTRUCTION. Goals Goal 1:: DECREASE C/O LOW BACK AND LLE SX'S. Goal Time Frame: 4-6 Weeks Goal Progress: Progressing Goal 2:: IMPROVE LIFTING, BENDING, SITTING, STANDING, SLEEP, TRAVEL AND HOMEMAKING FUNCITON. Goal Time Frame: 4-6 Weeks Goal Progress: Progressing Goal 3:: INSTRUCT IN PROPHYLAXIS Goal Time Frame: 4-6 Weeks Goal Progress: Progressing Anticipated Interventions Patient/Client Instruction: Educate patient on: Condition, Plan of Care, Risk Factors, Benefits of Fitness Program For the Purpose of:: To improve self management Therapeutic Exercise to Include: Strength training, Body mechanics, Postural training, Flexibilty training, Neuromotor development, In an aquatic setting, Dynamic Lumbar Stabilization, Scapular Strength/Stabilization For the Purpose of:: To decrease pain, To increase ROM, To improve muscle performance and motor function, To increase tolerance to activity/condition/position, To improve ability of physical actions for home/community/work/leisure Please do not hesitate to contact me at [phone] by phone or if you have questions or concerns regarding this new plan of care! Sincerely, Caitlin Duval, PT, Cert MDT
--- NOTE | 2020-03-12 15:32 | HP.PTDCSUM ---
It has been my pleasure to treat VASILIY LUI referred by Dr. Ness Duggan DO, with the diagnosis of LUMBAR RADICULOPATHY for a total of 19 visit(s). Discharge Date: 03/12/20 Please see the following information for a summary of their discharge status. Subjective: CAUDAL PROCEEDURE BY DR. WHEELER YESTERDAY. DIRECTOR OF CAMPUS RECREATION BUT BETTER TODAY THAN YESTERDAY. EPISODE OF INCREASED SCIATICA A COUPLE WEEKS AGO AFTER VACUUMING. 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 SHE REPORTS BEING VERY INFLAMMED PRIOR TO GETTING CAUDAL. THE SCIATICA IS A LITTLE BETTER SINCE THE CAUDAL. PLANS TO GO BACK FOR NECK INJECTION. WILL FOLLOW UP WITH DR. WHEELER IN ABOUT 2 WEEKS. PATIENT REPORTS THE THERAPY HELPED WITH THE LE STRENGTH. SHE ALSO REALIZES HOW TO USE BETTER BODY MECHANICS WITH THINGS LIKE VACUUMING NOW. Lumbar Spine Pain Intensity (Out of 10): 3 LLE Pain Intensity (Out of 10): 0 RLE Pain Intensity (Out of 10): 0 % Improvement: 20 Objective/Function: PATIENT WAS SEEN TODAY FOR RE-ASSESSMENT OF PROGRESS TOWARD THE SET PT GOALS AND THE NEED FOR FURTHER PHYSICAL THERAPY VS READINESS FOR DISCHARGE. ER IMPROVEMENT. PATIENT IS INDEP WITH A HEP AND A POOL EX PROGRAM. UPON EXAM TODAY: INDEP GAIT AND TRANSFERS. SIT TO STAND WITHOUT UE'S IS STILL DIFFICULT. ONLY ABLE TO STAND WITHOUT C/O INCREASED DISCOMFORT FOR SEVERAL MINUTES TODAY. Motor deficit: SIRISHA LE'S 5/5 WITH MMT'ING. Sensory deficit: SIRISHA LE LIGHT TOUCH SENSATION INTACT AND SYMMETRICAL. ROM deficit: SIRISHA LE'S WFL. Dural Signs: NEGATIVE SIRISHA LE'S. Lumbar mvmt loss: flex - NIL. ext - MOD. R SG - MOD. L SG - MIN. PATIENT C/O LBP BUT NOT LE PAIN WITH LUMBAR ROM TESTING ALL PLANES AND HAS STILL HAS SOME DIFFICULTY RETURNING FROM FLEXION IN STANDING. PATIENT HAD A SET BACK WITH VACUUMING AND TRAVEL BUT SHOT SEEMS TO BE HELPING NOW. Goal 1:: DECREASE C/O LOW BACK AND LLE SX'S. Goal Progress: Progressing Goal 2:: IMPROVE LIFTING, BENDING, SITTING, STANDING, SLEEP, TRAVEL AND HOMEMAKING FUNCITON. Goal Progress: Progressing Goal 3:: INSTRUCT IN PROPHYLAXIS Goal Progress: Progressing Plan: D/C TO INDEP EX PROGRAMS. PATIENT IS AGREEABLE. If there are questions or concerns regarding this patient's physical therapy, please feel free to call me at [phone]. Thank you for the referral of this patient. Sincerely, Caitlin Duval, PT, Cert MDT
== END 2020-03-12 19:00 | disposition home or self-care (01) ==
LOC: PT 15:00
PROVIDERS: PCP Internal Medicine; Referring Provider Internal Medicine; Visit Provider Internal Medicine
DX: M54.16 Radiculopathy, lumbar region (principal)
CPT/HCPCS: 97112; 97113; 97162; 97164

== ENCOUNTER → 2020-06-17 | Outpatient (CLI) | payer OTHER, SELFPAY ==
--- NOTE | 2020-06-17 14:02 | BI_ITS ---
MAMMOGRAPHY - BILATERAL SCREENING REASON FOR EXAM: Female, 60 years old. Routine annual screening examination. PERTINENT HISTORY: Non-contributory. TECHNIQUE: Digital bilateral breast michelle (3D mammographic acquisition) in the CC and MLO projections. 2-D mediolateral oblique (MLO) and craniocaudad (CC) views of both breasts were obtained. CAD: Full Field Digital Mammography with Computer Added Detection was performed. COMPARISON: Comparison is made with prior study dated 06/16/2019 and 06/13/2018. FINDINGS: Breast Composition: The breasts are heterogeneously dense, which may obscure small masses. There are no dominant masses or suspicious calcifications. A tissue clip marker is once again seen in the upper lateral aspect of the left breast. Stable small benign appearing bilateral axillary lymph nodes. No other significant abnormalities are identified. There has been no significant change since the prior study. BI/SCREEN MAMM (CAD) W/MICHELLE BILAT IMPRESSION: Stable bilateral screening mammogram. Yearly follow-up mammogram recommended. (A) ASSESSMENT CATEGORY: BIRADS Category 2: Benign. A letter regarding these results will be sent to the patient by the facility within 30 days. Approximately 10% of breast cancers are not detected by mammography. A normal mammogram should not delay biopsy of a clinically suspicious abnormality. [id number] Electronically Signed: Jevon Norwood, at 14:52 EDT , Service support ,
== END | disposition home or self-care (01) ==
LOC: OPBI 14:00
PROVIDERS: PCP Internal Medicine; Referring Provider Obstetrics & Gynecology; Visit Provider Obstetrics & Gynecology
DX: Z12.31 Encounter for screening mammogram for malignant neoplasm of breast (principal)
CPT/HCPCS: 77063; 77067

== ENCOUNTER → 2020-11-24 09:50 | Outpatient (CLI) | payer OTHER, SELFPAY ==
--- NOTE | 2020-11-24 09:55 | ECHOD_ITS ---
Reason For Study: BENITEZ Procedure This was a 2D Doppler, Color Flow transthoracic echocardiogram. Exam performed in department. Left Ventricle Normal LV size. Left ventricular systolic function is normal. The estimated ejection fraction is 60 %. Stage 1 diastolic dysfunction. No regional wall motion abnormalities noted. Right Ventricle Normal RV size. Normal systolic function. Atria Normal left atrium. Normal right atrium. Mitral Valve Normal mitral valve. Tricuspid Valve Normal tricuspid valve. Aortic Valve Trisinus/trileaflet aortic valve. Mild focal aortic valve calcification. Pulmonic Valve Normal pulmonic valve. Great Vessels Normal aortic root. The pulmonary artery is normal size. Normal inferior vena cava. Pericardium/Pleural No pericardial effusion. MMode/2D Measurements & Calculations LVIDd: 4.3 cm IVSd: 0.96 cm Ao root diam: 3.0 cm LVIDs: 3.0 cm LVPWd: 0.89 cm FS: 30.2 % LAV(MOD-bp): 46.6 ml LA A4 area: 16.4 cm2 LA dimension(2D): 3.8 cm LAV(MOD-bp) Indexed: 28.0 ml/m2 LAV(MOD-sp2): 45.6 ml LAV(MOD-sp4): 45.5 ml RA A4 area: 13.3 cm2 Time Measurements MV dec time: 0.19 sec Doppler Measurements & Calculations MV E max bairon: 72.0 cm/sec Lat Peak E' Bairon: 9.3 cm/sec Med Peak E' Bairon: 8.3 cm/sec MV A max bairon: 80.5 cm/sec E/E' lat: 7.7 E/E' med: 8.7 MV E/A: 0.89 Ao V2 max: 124.7 cm/sec LV V1 max: 98.9 cm/sec PA V2 max: 88.9 cm/sec Ao max P.2 mmHg LV V1 max P.9 mmHg Interpretation Summary Normal LV size. Left ventricular systolic function is normal. The estimated ejection fraction is 60 %. Stage 1 diastolic dysfunction. Mild focal aortic valve calcification. Ordering Physician: Ness Duggan Referring Physician: Ness Duggan Performed By: Sigrid Nice RDCS, RVT
== END ==
PROVIDERS: PCP Internal Medicine; Referring Provider Internal Medicine; Visit Provider Internal Medicine
DX: R06.00 Dyspnea, unspecified (principal)
CPT/HCPCS: 93306

== ENCOUNTER → 2021-01-14 09:27 | Outpatient (CLI) | payer OTHER, SELFPAY ==
--- NOTE | 2021-01-14 09:30 | US_ITS ---
STUDY: ABDOMINAL ULTRASOUND - RIGHT UPPER QUADRANT REASON FOR VISIT: Female, 60 years old ELEVATED LIVER ENZYME TESTS TECHNIQUE: Ultrasound evaluation of the right upper quadrant was performed with real-time and static guzmán-scale imaging. TECHNICAL QUALITY: Adequate. COMPARISON: None. FINDINGS: Liver: The liver is slightly enlarged and measures 18.3 cm. There is increased echogenicity consistent with fatty infiltration. The bile ducts are within normal limits. There is hepatic color flow. The direction of portal flow is hepatopetal. There is no demonstrated mass lesion. Gallbladder: Normal distended gallbladder. The gallbladder wall measures 1 mm. There is a negative sonographic Leblanc''s sign. There is no pericholecystic fluid. There are no gallstones. Common Bile Duct (C.B.D.): The common bile duct measures 2 mm. Pancreas: Normal size of the head, body and tail of the pancreas. There is normal echogenicity of the pancreas. There is no demonstrated pancreatic mass or cyst. Right Kidney: Normal size of the right kidney. The right kidney measures 9.8 cm x 4.9 cm x 3.8 cm. Normal renal cortex. The right cortex measures 1.1 cm. There is no demonstrated renal mass or cyst. There is no right hydronephrosis. US/Liver IMPRESSION: Mild hepatomegaly and fatty infiltration of the liver. Electronically Signed: Jevon Norwood MD at 13:51 EDT , Service support ,
== END ==
PROVIDERS: PCP Internal Medicine; Referring Provider Internal Medicine; Visit Provider Internal Medicine
DX: R79.89 Other specified abnormal findings of blood chemistry (principal)
CPT/HCPCS: 76705

== ENCOUNTER → 2021-01-27 16:58 | Outpatient (CLI) | payer OTHER, SELFPAY ==
--- NOTE | 2021-01-27 17:04 | MRI_ITS ---
STUDY: MRI BRAIN WITH AND WITHOUT CONTRAST REASON FOR EXAM: Female, 60 years old. PERIPHERAL VISION LOSS, BILATERAL TECHNIQUE: Standardized multiplanar fat and water weighted pulse sequences were obtained. IV DOTAREM 12 CC was administered for the contrast portion of the examination. COMPARISON: 05/20/2019. FINDINGS: No intracranial mass, mass effect, or midline shift. No hemorrhage, territorial infarct or acute ischemia. No enhancing lesion. Normal size of the ventricles and extra-axial spaces for the patient''s age. There are a limited number of small white matter hyperintensities, distributed throughout the deep white matter tracts of the cerebral hemispheres, consistent with mild chronic white matter ischemic changes. No change from the prior study. Normal bilateral basal ganglia. Normal thalami. There is no extra-axial fluid accumulation. Normal flow voids within the major intracranial circulation suggesting patency by spin echo criteria. There is no enhancing intra-axial or extra-axial abnormality. Normal sella turcica, pituitary gland, infundibular stalk, optic chiasm and hypothalamus. Normal midbrain, hermelinda and medulla. Normal cerebellum. Normal basal cisterns. Normal bilateral temporal bones. Normal bilateral internal auditory canals. Normal visualized paranasal sinuses. Normal calvarium and skull base. Normal visualized soft tissue structures. MRI/Brain W/WO Contrast IMPRESSION: Mild microvascular ischemic changes, otherwise negative unenhanced and enhanced MRI of the brain. Electronically Signed: Cathy Faustin MD at 23:32 EDT Tel , Service support ,
== END ==
PROVIDERS: PCP Internal Medicine; Referring Provider Internal Medicine; Visit Provider Internal Medicine
DX: H53.453 Other localized visual field defect, bilateral (principal)
CPT/HCPCS: 70553; A9575

== ENCOUNTER 2021-03-08 16:30 | Outpatient (RCR) | payer OTHER, SELFPAY ==
--- NOTE | 2021-01-26 09:01 | HP.PTEVAL ---
Patient's Visit Information VASILIY LUI is a 60 year old F referred to Physical Therapy by Dr. Ness Duggan DO with a diagnosis of Lumbar spine pain, R leg pain. Date of Evaluation: 01/19/21 Physical Therapist: Mick Haley DPT - Visit Plan Frequency: 2x /Week Duration: 4-6 Weeks Plan: Start with R hip ROM progression, DN to R hip and greater trochanter. Progress extension progression. Once symptoms are improving add in hip ER strengthening, glute strengthening and core stability exercises. - Subjective Pt. is here today for her LBP, IT band, R leg pain. Pt. reports having pain for some time now. Pt. has been trying exercises, but without relief. She has constant LBP, but feels like her R leg pain as become worse recently. Pt. reports having difficulty walking as well. Pt. denies N/T in either LE. Pt. is concerned about her leg pain as it has impacted her walking and recreational activities. She is having trouble sleeping. Pain extends to knee, laterally, but not beyond. Pt. reports pain in AMs and after prolonged sitting. She has had injections in her spine with some relief, but has not tried in some time. Pt. is hopeful to reduce symptoms in order to get back to all recreational walking and activities without limitiatations. - Pain Lumbar spine Pain Intensity (Out of 10): 2 Pain Intensity Range: 0, 5 RLE Pain Intensity (Out of 10): 4 Pain Intensity Range: 2, 7 Comment: hip to knee region - Objective POSTURE: Pt. has slight flexed posture. Normal iliac crest heights. Pt. has decrased lumbar lordosis. PALPATION: Pt. has tenderness at R gluteal region, R greater trochanter, R piriformis, and slight pain along distal IT band. NEURO: Pt. has normal sensation in BLEs and normal DTR of B achilles and patellar tendons. ROM: Lumbar spine: flexion: min loss increase NW, extension- min loss increase NW, SB min loss NE, rotation min loss NE. Pt. has very tight hip musculature. R hip: flexion full no effect, ext 10 deg increase NW, abd 45deg NE, ER 35 deg increase NW It feels so tight, IR 30deg NE. LLE- flexion full no effect, ext 10 deg increase NW, abd 45deg NE, ER 55 deg, IR 30deg NE. Normal HS length, tightness with obers testing on R side, no effect on L side. MMT: Core strength- poor+. RLE- ankle 5/5 throughout; knee: ext 5/5, flexion 5/5; hip- flexion 4/5, abd 4-/5 increase NW, ext 4/5 NE. LLE: ankle/knee 5/5 throughout; hip- flexion 4+/5, abd 4+/5, ext 4+/5. GAIT: pt. has fwrd flexed posture, incraesed R lateral hip translation during R stance phase. Pt. reports increasd pain during R stance phase. - Goals Goal 1:: LTG: Pt. to be I with HEP for lumbar ROM and R hip stretching. Goal Time Frame: 4-6 Weeks Goal 2:: STG: pt. to be able to sleep throughout the night with 0-2/10 pain in R hip. Goal Time Frame: 2-4 Weeks Goal 3:: STG: Pt. to ambulate household distances with 0-2/10 pain in R hip and lumbar spine. Goal Time Frame: 2-4 Weeks Goal 4:: LTG: pt. to resume all recreational walking with 0-2/10 pain in R hip and lumbar spine. Goal Time Frame: 4-6 Weeks Goal 5:: LTG: Pt. to have increased R hip ER to 60deg and negative R obers test. Goal Time Frame: 4-6 Weeks Goal 6:: LTG: Pt. to have increased core and RLE strength increaed by 1/2 grade of all effected musculature. Goal Time Frame: 4-6 Weeks - Rehabilitation Potential Physical Therapy Diagnosis: Pt. has signs and symptoms of lumbar spine and R leg pain. Pt. has chronic LBP and a newer onset of IT band pain, greater trochanter pain on R side. Pt. reports no N/T in her leg and the pain starts at lateral hip and does occassionall extend to her knee. Her pain does not seem to be radiating from her lumbar spine with testing today. She is very sensitive to touch at R greater trochanter and is very tight with hip ER and adduction. Pt. would benefit from PT to increase her ROM, decrease her symptoms and progressing back to reactional walking without limitations. Rehabilitation Potential: Good - Anticipated Interventions Patient/Client Instruction: Educate patient on: Condition, Plan of Care, Risk Factors, Benefits of Fitness Program For the Purpose of:: To improve decision making, To facilitate caregiver knowledge, To improve self management, To prevent re-injury, To improve ability to perform tasks related to life management, To improve tolerance to ADL's Therapeutic Exercise to Include: Strength training, Power training, Body mechanics, Postural training, Flexibilty training, Passive ROM, Active ROM, Dynamic Lumbar Stabilization, Fidel Exercises For the Purpose of:: To decrease pain, To decrease swelling/inflammation, To increase ROM, To improve nutrient delivery to tissue, To increase oxygenation perfusion, To improve gait and locomotor functions, To improve health of tissue, To decrease soft tissue restriction, To increase flexibility/ROM, To improve endurance Manual Therapy Techniques to Include: Mobilization, Functional dry needling, Soft tissue mobilization For the Purpose of:: To decrease pain, To decrease swelling/inflammation, To increase ROM, To improve nutrient delivery to tissue, To increase oxygenation perfusion, To improve muscle performance and motor function Ultrasound (thermal/non thermal): Yes For the Purpose of:: To decrease pain, To decrease swelling/inflammation, To increase ROM, To improve nutrient delivery to tissue Thank you for the opportunity to evaluate your patient. For Medicare and Medicare HMO plans, please review the plan of care and approve it. It will need to be FAXED BACK to us at [phone] for Medicare purposes. For Medicare only, by signing this I certify the plan of care. Please let me know if there are questions or concerns regarding this plan of care. Physician Signature: Date:
--- NOTE | 2021-03-04 10:34 | HP.PTREVAL_ITS ---
Dr. Ness Duggan, DO, It has been my pleasure to treat VASILIY LUI over the last 9 visits for Lumbar spine pain, R leg pain. Please see the progress note below for an update on the physical therapy plan of care! Subjective: Pt. reports I was a little bit more sore after last visit. pt. reports going to the chiro today and has amalia feeling a bit better. She is still having increased LBP and R greater trochanter pain, at posterior aspect. Pt. reports 3/10 pain in R greater trochanter today. 4/10 in lumbar spine. Objective/Function: I held of with DN today, as she was thinking this might have caused her some more symptoms. pt. is to she how she does after this visit, but might make this her last visit, pending progress. I talked to her about possibly seeing the chiro a few more times in frequent succession to get her symptoms under control. Pt. still has tightness in her piriformis and HS and IT band on the R side. Pt. would benefit from continued stretching. She is independent in her HEP. Plan Plan: Pt. to potentially keep her next appointment in 1-2 weeks or if not fee ling benefit she plans to continue more with early breastfeeding care specialist. Goals Goal 1:: LTG: Pt. to be I with HEP for lumbar ROM and R hip stretching. Goal Time Frame: 4-6 Weeks Goal Progress: Goal Met Goal 2:: STG: pt. to be able to sleep throughout the night with 0-2/10 pain in R hip. Goal Time Frame: 2-4 Weeks Goal Progress: Progressing Goal 3:: STG: Pt. to ambulate household distances with 0-2/10 pain in R hip and lumbar spine. Goal Time Frame: 2-4 Weeks Goal Progress: Progressing Goal 4:: LTG: pt. to resume all recreational walking with 0-2/10 pain in R hip and lumbar spine. Goal Time Frame: 4-6 Weeks Goal Progress: Not Progressing Goal 5:: LTG: Pt. to have increased R hip ER to 60deg and negative R obers test. Goal Time Frame: 4-6 Weeks Goal Progress: Not Progressing Goal 6:: LTG: Pt. to have increased core and RLE strength increaed by 1/2 grade of all effected musculature. Goal Time Frame: 4-6 Weeks Goal Progress: Progressing Anticipated Interventions Patient/Client Instruction: Educate patient on: Condition, Plan of Care, Risk Factors, Benefits of Fitness Program For the Purpose of:: To improve decision making, To facilitate caregiver knowledge, To improve self management, To prevent re-injury, To improve ability to perform tasks related to life management, To improve tolerance to ADL's Therapeutic Exercise to Include: Strength training, Power training, Body mechanics, Postural training, Flexibilty training, Passive ROM, Active ROM, Dynamic Lumbar Stabilization, Fidel Exercises For the Purpose of:: To decrease pain, To decrease swelling/inflammation, To increase ROM, To improve nutrient delivery to tissue, To increase oxygenation perfusion, To improve gait and locomotor functions, To improve health of tissue, To decrease soft tissue restriction, To increase flexibility/ROM, To improve e ndurance Manual Therapy Techniques to Include: Mobilization, Functional dry needling, Soft tissue mobilization For the Purpose of:: To decrease pain, To decrease swelling/inflammation, To increase ROM, To improve nutrient delivery to tissue, To increase oxygenation perfusion, To improve muscle performance and motor function Ultrasound (thermal/non thermal): Yes For the Purpose of:: To decrease pain, To decrease swelling/inflammation, To increase ROM, To improve nutrient delivery to tissue Please do not hesitate to contact me at [phone] by phone or if you have questions or concerns regarding this new plan of care! Sincerely, Mick Haley DPT
--- NOTE | 2021-03-09 10:32 | HP.PTREVAL_ITS ---
Dr. Ness Duggan, DO, It has been my pleasure to treat VASILIY LUI over the last 10 visits for Lumbar spine pain, R leg pain. Please see the progress note below for an update on the physical therapy plan of care! Subjective: Pt. reports that she has been doing exercises at home and has been able to do them with little pain in her R hip region. She states that last session decreased her symptoms. She plans to get an injection to her painful area on Sunday. Objective/Function: The pt. stated that last treatment session decreased her symptoms, which was the main priority today. The pt. will be independent with her HEP and swim routine. Plan Plan: Pt. will be independent with exercises to strengthen the hip musculature and will call if her symptoms worsen over the next couple of weeks. Pt. reports overall the distal part of her RLE has improved. but is still having greater tro chanter pain and low back pain. Pt. reports the spasming she had the other day has improved. She is going to have an injection later this week and I talked to her about having that done and slowly adding in exercises on her own at this point in time. Pt. to follow up with PT in 1-3 weeks if needed other rai I will DC back to physician. Goals Goal 1:: LTG: Pt. to be I with HEP for lumbar ROM and R hip stretching. Goal Time Frame: 4-6 Weeks Goal Progress: Goal Met Goal 2:: STG: pt. to be able to sleep throughout the night with 0-2/10 pain in R hip. Goal Time Frame: 2-4 Weeks Goal Progress: Progressing Goal 3:: STG: Pt. to ambulate household distances with 0-2/10 pain in R hip and lumbar spine. Goal Time Frame: 2-4 Weeks Goal Progress: Progressing Goal 4:: LTG: pt. to resume all recreational walking with 0-2/10 pain in R hip and lumbar spine. Goal Time Frame: 4-6 Weeks Goal Progress: Not Progressing Goal 5:: LTG: Pt. to have increased R hip ER to 60deg and negative R obers test. Goal Time Frame: 4-6 Weeks Goal Progress: Not Progressing Goal 6:: LTG: Pt. to have increased core and RLE strength increaed by 1/2 grade of all effected musculature. Goal Time Frame: 4-6 Weeks Goal Progress: Progressing Anticipated Interventions Patient/Client Instruction: Educate patient on: Condition, Plan of Care, Risk Factors, Benefits of Fitness Program For the Purpose of:: To improve decision making, To facilitate caregiver knowledge, To improve self management, To prevent re-injury, To improve ability to perform tasks related to life management, To improve tolerance to ADL's Therapeutic Exercise to Include: Strength training, Power training, Body mechanics, Postural training, Flexibilty training, Passive ROM, Active ROM, Dynamic Lumbar Stabilization, Fidel Exercises For the Purpose of:: To decrease pain, To decrease swelling/inflammation, To increase ROM, To improve nutrient delivery to tissue, To increase oxygenation perfusion, To improve gait and locomotor functions, To improve health of tissue, To decrease soft tissue restriction, To increase flexibility/ROM, To improve endurance Manual Therapy Techniques to Include: Mobilization, Functional dry needling, Soft tissue mobilization For the Purpose of:: To decrease pain, To decrease swelling/inflammation, To increase ROM, To improve nutrient delivery to tissue, To increase oxygenation perfusion, To improve muscle performance and motor function Ultrasound (thermal/non thermal): Yes For the Purpose of:: To decrease pain, To decrease swelling/inflammation, To increase ROM, To improve nutrient delivery to tissue Please do not hesitate to contact me at [phone] by phone or if you have questions or concerns regarding this new plan of care! Sincerely, DIANNE SchmittT
--- NOTE | 2021-03-28 17:36 | HP.PT.NRP ---
VASILIY LUI was seen in my office for initial evaluation on 01/19/21. The following Plan of Care was established for this patient: Initial Frequency: 2x /Week Initial Duration: 4-6 Weeks Patient/Client Instruction: Educate patient on: Condition, Plan of Care, Risk Factors, Benefits of Fitness Program For the Purpose of:: To improve decision making, To facilitate caregiver knowledge, To improve self management, To prevent re-injury, To improve ability to perform tasks related to life management, To improve tolerance to ADL's Therapeutic Exercise to Include: Strength training, Power training, Body mechanics, Postural training, Flexibilty training, Passive ROM, Active ROM, Dynamic Lumbar Stabilization, Fidel Exercises For the Purpose of:: To decrease pain, To decrease swelling/inflammation, To increase ROM, To improve nutrient delivery to tissue, To increase oxygenation perfusion, To improve gait and locomotor functions, To improve health of tissue, To decrease soft tissue restriction, To increase flexibility/ROM, To improve endurance Manual Therapy Techniques to Include: Mobilization, Functional dry needling, Soft tissue mobilization For the Purpose of:: To decrease pain, To decrease swelling/inflammation, To increase ROM, To improve nutrient delivery to tissue, To increase oxygenation perfusion, To improve muscle performance and motor function Ultrasound (thermal/non thermal): Yes For the Purpose of:: To decrease pain, To decrease swelling/inflammation, To increase ROM, To improve nutrient delivery to tissue This patient was last seen in our office 03/08/21. Pertinent comments regarding their Physical therapy will appear below: Pt. was seen in PT for her back and R hip pain. Pt. was having mild success with stretching and modalities. She was to have an injection and follow back up with PT if needed. She has not been seen in several weeks and will be DC from PT at this point in time. At this point I will be discontinuing this patient from physical therapy. I would be happy to see this patient again in the future if found appropriate by the physician. Thank you! Mick Haley, DIANNET
== END 2021-03-08 19:00 | disposition home or self-care (01) ==
LOC: PT 16:30
PROVIDERS: PCP Internal Medicine; Referring Provider Internal Medicine; Visit Provider Internal Medicine
DX: M54.5 Low back pain (principal); M79.604 Pain in right leg
CPT/HCPCS: 97035; 97110; 97161

== ENCOUNTER → 2021-04-12 15:37 | Outpatient (CLI) | payer OTHER, SELFPAY ==
[2021-03-24 11:35] VITALS: BMI 22.8
[2021-04-17 10:20] LABS: HPV APTIMA, High Risk Negative (Negative)
== END ==
PROVIDERS: PCP Internal Medicine; Visit Provider Obstetrics & Gynecology
DX: Z12.4 Encounter for screening for malignant neoplasm of cervix (principal)
CPT/HCPCS: 87624; 88175; G0145

== ENCOUNTER → 2021-04-19 | Outpatient (CLI) | payer OTHER, SELFPAY ==
[2021-03-24 11:35] VITALS: BMI 22.8
--- NOTE | 2021-04-19 | EMB_PTH ---
PATIENT: VASILIY LUI LOC: [facility] U#:[id number] AGE/SX: 61/F ROOM: RE04/19/[address]: Dr. Massiel Driver MD : 1960 BED: DIS: 04/19/2021 SPEC #: [id number] RECD: 04/20/21 07:54 STATUS: RIZWANA REQ #: [id number] SANDY: 04/19/21 00:[address]: Massiel Hong DEPT: SURGICAL PATHOLOGY RECD BY: Robin Zavala ENTERED: 04/20/21 07:55 SP TYPE: ENDOM BX/C OTHR DR: Dr. Ness Duggan DO Tissues: Endometrium, NOS Procedures: Surgery Specimen Level IV HEADER OPERATION: Endometrial biopsy PRE-OP DIAGNOSIS: Postmenopausal bleeding TISSUE SUBMITTED: Endometrial biopsy MICROSCOPIC DIAGNOSIS Endometrium, biopsy: Strips of benign superficial glandular epithelium. Rare strips of benign superficial endocervix and squamous mucosa. AM:joy 04/21/2021 MICROSCOPIC DESCRIPTION Slides are reviewed. GROSS DESCRIPTION Received in fixative is one container labeled with the patient's name and designated EMB. The specimen consists of multiple fragments of hemorrhagic soft tissue that in aggregate measure 1.5 x 0.3 x 0.1 cm. The specimen is totally submitted in one cassette. / SJ:joy 04/20/21 TC:5 CPT: 90543
== END | disposition home or self-care (01) ==
LOC: LABSPEC 16:46
PROVIDERS: PCP Internal Medicine; Visit Provider Obstetrics & Gynecology
DX: N95.0 Postmenopausal bleeding (principal)
CPT/HCPCS: 88305

== ENCOUNTER → 2021-05-30 07:21 | Outpatient (CLI) | payer OTHER, SELFPAY ==
[2021-03-24 11:35] VITALS: BMI 22.8
--- NOTE | 2021-05-30 07:24 | CT_ITS ---
History: DISSECTION OF CEREBRAL ARTERIES TECHNIQUE: Routine carotid CT angiogram protocol was performed without and with IV contrast. In addition, images were obtained of the [place]. Nascet criteria using the distal ICAs for comparison were used for evaluation of stenoses. 3D reconstructions were reviewed. A radiation dose optimization technique was used for this scan. IV Contrast dosage and agent: IV 100mL [id number] COMPARISON: None FINDINGS: --NECK: AORTIC ARCH AND BRANCHES: Normal anatomy, patent. Left common carotid artery arises from a common trunk with the right innominate artery. RIGHT CCA: No occlusion, significant stenosis or dissection. RIGHT ICA: No occlusion, significant stenosis or dissection. LEFT CCA: No occlusion, significant stenosis or dissection. LEFT ICA: No occlusion, significant stenosis or dissection. RIGHT VERTEBRAL ARTERY: No occlusion, significant stenosis or dissection. LEFT VERTEBRAL ARTERY: No occlusion, significant stenosis or dissection. NECK SOFT TISSUES: Unremarkable. LUNG APICES: Clear. BONES: Moderate diffuse spondylosis of the cervical spine. --HEAD: --Anterior circulation: ICAs: No significant stenosis at the intracranial/visualized segments. ACAs: No significant stenosis at the visualized segments. ACOM: Present. MCAs: No significant stenosis at the visualized segments. --Posterior circulation: PCOMs: Left P-comm is present and patent. 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 BASILAR ARTERY: No significant stenosis. VERTEBRAL ARTERIES: No significant stenosis at the intradural/visualized segments. No evidence of intracranial aneurysm or vascular malformation. CT/CTA Head AND Neck W/ Contrast IMPRESSION: Negative CTA Head and Neck. Individualized dose optimization techniques were used for this CT. at 0904 Reported and signed by: Griffin Calle MD Electronically Signed: Griffin Calle MD at 9:03 EDT Tel , Service support ,
[2021-05-30 07:46] LABS: CREATININE FINGERSTICK 0.8 mg/dL (0.55-1.02); EGFR FINGERSTICK > 60.0000 mL/min (>60)
== END ==
PROVIDERS: PCP Internal Medicine; Referring Provider Psychiatry & Neurology Neurology; Visit Provider Psychiatry & Neurology Neurology
DX: I67.0 Dissection of cerebral arteries, nonruptured (principal)
CPT/HCPCS: 70496; 70498; Q9967

== ENCOUNTER → 2021-06-21 14:57 | Outpatient (CLI) | payer OTHER, SELFPAY ==
[2021-03-24 11:35] VITALS: BMI 22.8
--- NOTE | 2021-06-21 14:59 | BI_ITS ---
MAMMOGRAPHY - BILATERAL SCREENING 3-D TOMOSYNTHESIS REASON FOR EXAM: Female, 61 years old. Screening PERTINENT HISTORY: No significant family history. TECHNIQUE: 2-D mammograms and 3-D Tomosynthesis of the breast (s) were performed. CAD was performed. COMPARISON: 06/17/2020 FINDINGS: The breast composition is composed of scattered fibroglandular density. Scattered benign calcifications are seen. No dense spiculated masses or suspicious microcalcifications are identified. No architectural distortion is identified. There is no skin thickening or retraction. There has been no significant change since the prior study. BI/SCRN MAMM (CAD)W/MICHELLE BILAT IMPRESSION: No mammographic signs of malignancy. Routine yearly mammograms recommended. ASSESSMENT CATEGORY: BIRADS Category 1: Negative. A letter regarding these results will be sent to the patient by the facility within 30 days. FOLLOW UP RECOMMENDATION: Yearly follow up mammogram recommended. (A) Approximately 10% of breast cancers are not detected by mammography. A normal mammogram should not delay biopsy of a clinically suspicious abnormality. Electronically Signed: Biju Fenton MD at 17:25 EDT Tel , Service support ,
== END ==
PROVIDERS: PCP Internal Medicine; Referring Provider Obstetrics & Gynecology; Visit Provider Obstetrics & Gynecology
DX: Z12.31 Encounter for screening mammogram for malignant neoplasm of breast (principal)
CPT/HCPCS: 77063; 77067

== ENCOUNTER 2022-01-03 13:29 | Outpatient (CLI) | payer OTHER, SELFPAY ==
--- NOTE | 2022-01-03 13:35 | BD_ITS ---
STUDY: DUAL ENERGY X-RAY ABSORPTIOMETRY / DXA REASON FOR EXAM: Female, 61 years old. [id number]. The patient is postmenopausal. TECHNIQUE: Bone Mineral Density (BMD) measurements of lumbar spine and bilateral hips were obtained. COMPARISON: Comparison is made with prior study 12/30/2019 and 12/27/2017. FINDINGS: Lumbar Spine (L1-L4): g/cm2 (1.027) / T-score (0.4) / Z-score (1.9) Findings are suggestive of normal bone density with a low fracture risk. Left Femur Total: g/cm2 (0.796) / T-score (-1.2) / Z-score (-0.1) Left Femoral Neck: g/cm2 (0.605) / T-score (-2.2) / Z-score (-0.8) Right Femur Total: g/cm2 (0.804) / T-score (-1.1) / Z-score (0.0) Right Femoral Neck: g/cm2 (0.648) / T-score (-1.8) / Z-score (-0.4) The T-Scores on the most recent prior examination were: Lumbar Spine (L1-L4): There has been improvement of bone density since the previous examination. Left Femur Total: which represents an improvement of 4.7%. Right Femur Total: which represents an improvement of 3.1%. BD/Dexa Bone Density Study IMPRESSION: The patient is considered osteopenic as outlined below according to World [employer] Organization (WHO) criteria with a moderate fracture risk. There has been improvement of bone density since the previous examination. Reference Information: The T-score is the number of standard deviations above or below the standard which is normal for young adults at their peak bone mineral density. The World Health Organization (WHO) interprets the T-scores as follows: Above -1 Normal bone density Between -1 and -2.5 Osteopenia Equal to / or below -2.5 Osteoporosis As a practical clinical guideline, osteopenia may be graded as follows: Mild -1 through -1.5 Moderate -1.6 through -2.0 Severe -2.1 through -2.4 The Z-score is the number of standard deviations above or below age-matched controls. A Z-score of less than -1.5 would be considered abnormal. References: 1. NIH Osteoporosis and Related Bone Diseases www osteo.org 2. International Society for Clinical Densitometry www iscd.org 3. National Osteoporosis Foundation www nof.org Electronically Signed: Jevon Norwood MD at 9:03 EDT ,
--- NOTE | 2022-01-03 13:49 | US_ITS ---
STUDY: ABDOMINAL ULTRASOUND - RIGHT UPPER QUADRANT REASON FOR VISIT: Female, 61 years old FATTY LIVER TECHNIQUE: Ultrasound evaluation of the right upper quadrant was performed with real-time and static guzmán-scale imaging. TECHNICAL QUALITY: Adequate. COMPARISON: Abdomen ultrasound from 01/14/2021. FINDINGS: Liver: The liver measures 18.6 cm and is mildly enlarged but stable in size from previous study. There is increased echogenicity consistent with fatty infiltration. The bile ducts are within normal limits. There is hepatic color flow. The direction of portal flow is hepatopetal. There are a few small hyperechoic lesions in the hepatic parenchyma largest measuring up to 1.2 cm which were not well seen on prior exam but likely relate to hemangiomas. There are a few additional subcentimeter cystic lesions. Gallbladder: Normal distended gallbladder. The gallbladder wall measures 1 mm. There is a negative sonographic Leblanc''s sign. There is no pericholecystic fluid. There are no gallstones. Common Bile Duct (C.B.D.): The common bile duct measures 1 mm. Pancreas: The pancreatic head appears asymmetrically prominent and slightly more echogenic compared to the remainder the visualized pancreas. No obvious masses are identified in the pancreas. Right Kidney: Normal size of the right kidney. The right kidney measures 9.9 x 5.1 x 3.6 cm. Normal renal cortex. The right cortex measures 1.0 cm. There is no demonstrated renal mass or cyst. There is no right hydronephrosis. US/Liver IMPRESSION: 1. No acute findings. 2. Diffuse hepatic steatosis and stable mild hepatomegaly. 3. Pancreatic head appears asymmetrically prominent and slightly more echogenic compared to the remainder of the visualized pancreas. This is a nonspecific finding and may be due to technical limitations of ultrasound. However, further assessment with nonemergent CT is recommended. 4. A few small hyperechoic lesions in the hepatic parenchyma measuring up to 1.2 cm likely relate to hemangiomas. Attention on follow-up CT scan. Electronically Signed: Torres Cole, at 16:27 EDT ,
== END 2022-01-03 23:59 | disposition home or self-care (01) ==
LOC: US 13:31
PROVIDERS: PCP Internal Medicine; Visit Provider Internal Medicine
DX: K76.0 Fatty (change of) liver, not elsewhere classified (principal); Z78.0 Asymptomatic menopausal state
CPT/HCPCS: 76705; 77080

== ENCOUNTER 2022-01-11 14:22 | Outpatient (CLI) | payer OTHER, SELFPAY ==
--- NOTE | 2022-01-11 14:26 | RAD_ITS ---
STUDY: AP PELVIS AND RIGHT HIP SERIES--3 VIEWS OF 1447 HOURS ON 01/11/2022 REASON FOR EXAM: 61-year-old female with right hip pain. TECHNIQUE: 3 views of the pelvis and hip. COMPARISON: None. FINDINGS: No fractures or dislocations. There are no significant arthritic or degenerative changes. The hip joint space width is normal. There is no demonstration of loose osseous bodies in the joint space. Images, there is mild hypertrophic bone formation adjacent to the greater trochanter of the proximal right femur. The right ischium, right iliac crest, and right symphysis pubis have a normal appearance. There is an incidental finding of a mild fecal impaction RAD/HIP, UNI W/ Pelvis 2-3 Views IMPRESSION: 1. No fractures or dislocations. 2. No significant arthritic or degenerative changes. 3. Normal-appearing right hip joint width. 4. Mild hypertrophic bone formation adjacent to the right greater trochanter. 5. The pelvic bones have a normal appearance. 6. Incidental finding of a mild fecal impaction. Electronically Signed: Ethan Brown MD at 1:49 EDT ,
== END 2022-01-11 23:59 | disposition home or self-care (01) ==
LOC: RAD 14:24
PROVIDERS: PCP Internal Medicine; Referring Provider Internal Medicine; Visit Provider Internal Medicine
DX: M25.551 Pain in right hip (principal)
CPT/HCPCS: 73502

== ENCOUNTER 2022-01-13 17:52 | Outpatient (CLI) | payer OTHER, SELFPAY ==
[2022-01-13 18:10] LABS: CREATININE FINGERSTICK 0.7 mg/dL (0.55-1.02); EGFR FINGERSTICK > 60.0000 mL/min (>60)
--- NOTE | 2022-01-13 18:10 | CT_ITS ---
STUDY: CT ABDOMEN WITH AND WITHOUT CONTRAST REASON FOR EXAM: Female, 61 years old. PAIN RADIATION DOSAGE (If Supplied By Facility): CTDIvol = ( 17.51 ) mGy, DLP = ( 824.64 ) mGycm TECHNIQUE: Transaxial images were obtained pre and post I.V. administration of Oral and IV Readi-CAT and 100mL Isovue-300, and with oral contrast. Sagittal and coronal images were reconstructed. Individualized dose optimization techniques were used for this CT. COMPARISON: None. FINDINGS: The visualized lung bases are unremarkable. Trace pericardial effusion. Normal liver. Normal gallbladder and extrahepatic biliary system. Normal spleen. Normal pancreas. Normal bilateral adrenal glands. Normal right kidney. Normal left kidney. Normal visualized stomach. Normal small intestine. Diffuse fecal retention in the colon. Normal abdominal aorta. Normal inferior vena cava. Normal retroperitoneum. Normal abdominal wall. Normal osseous structures. CT/Abdomen W/WO IV Contrast IMPRESSION: Diffuse colonic fecal retention. Electronically Signed: Angel Masocrro DO at 19:08 EDT ,
== END 2022-01-13 23:59 | disposition home or self-care (01) ==
PROVIDERS: PCP Internal Medicine; Referring Provider Internal Medicine; Visit Provider Internal Medicine
DX: R93.89 Abnormal findings on diagnostic imaging of other specified body structures (principal)
CPT/HCPCS: 74170; Q9967

== ENCOUNTER → 2022-02-23 | Outpatient (CLI) | payer OTHER, SELFPAY ==
--- NOTE | 2022-02-23 15:40 | MRI_ITS ---
STUDY: MAGNETIC RESONANCE IMAGING OF THE PELVIS AND HIPS OF 1610 HOURS ON 02/23/2022 REASON FOR EXAM: 61-year-old female with right hip pain. TECHNIQUE: Standardized fat and water weighted pulse sequences were obtained in all 3 orthogonal planes. 6 sequences were obtained. COMPARISON: None. FINDINGS: There is a residue of old hematomas in the lateral right gluteus bird and lateral right piriformis muscle adjacent to the right intratrochanteric region of the right femoral neck and extending superiorly to the level of the superior right femoral head. There is no evidence of acute fractures or dislocations. There is no evidence of joint effusions. There is no evidence of neoplastic abnormalities of the pelvic bones, hips, or proximal femurs. The joint spaces are normal in appearance. There is normal joint cartilage bilaterally. There is no evidence of significant arthritic or degenerative changes. Sacroiliac joints are normal. The bladder has a normal appearance. The contents of the pelvis are normal. There is no evidence of abscesses. There is evidence pelvic lymphadenopathy. MRI/Lower Ext Joint Only (Routine) IMPRESSION: 1. Residue of old hematomas in the right lateral gluteus bird and lateral right piriformis muscle adjacent to the right intertrochanteric region of the right femoral neck and extending superiorly to the level of superior right femoral head. 2. No evidence of pelvic bone or hip fractures or dislocations. 3. No joint effusions. 4. Normal hip joint spaces with normal cartilage bilaterally. 5. Normal pelvic bones and sacroiliac joints. 6. Normal pelvic contents. 7. No evidence of abscesses. Electronically Signed: Ethan Brwon MD at 17:13 EDT ,
== END | disposition home or self-care (01) ==
LOC: MRI 15:30
PROVIDERS: PCP Internal Medicine; Visit Provider Internal Medicine
DX: M25.551 Pain in right hip (principal)
CPT/HCPCS: 73721

== ENCOUNTER 2022-06-22 09:00 | Emergency (ER) | payer OTHER, SELFPAY ==
[2022-06-22 09:01] VITALS: BP 159/85; PULSE 53; RESP 18; TEMP 36.6; O2SAT 100; BMI 22.8
--- NOTE | 2022-06-22 09:16 | EKG12_ITS ---
Test Reason : dizziness Blood Pressure : / mmHG Vent. Rate : 046 BPM Atrial Rate : 046 BPM P-R Int : 152 ms QRS Dur : 088 ms QT Int : 468 ms P-R-T Axes : 039 047 051 degrees QTc Int : 409 ms Sinus bradycardia Otherwise normal ECG Confirmed by NIKITA WHITE, KEYONNA ([id number]), publication editor RODNEY NASH ([id number]) on 06/23/2022 2:11:16 PM Referred By: Taz Confirmed By:NAM SHELTON MD
--- NOTE | 2022-06-22 09:17 | EX.ED.DYSGE1 ---
HPI History of Present Illness Chief Complaint: Dizziness Informant: patient and spouse/S.O. Onset/Context/Timing Onset: Today and Hours Context: Sudden Onset Timing: Continuous Current Severity: Moderate Maximum Severity: Moderate Narrative Narrative: 62-year-old male prior history of vertigo about a year and a half ago also history of hypertension and reflux. No prior stroke or intracranial bleed prior MRI of the brain and CTs were unremarkable. Had a cold last week. Says she woke up around 445 this morning with vertiginous type symptoms room spinning nausea and vomiting. Her was taught the Karissa maneuver by a family physician and it improved her symptoms a little bit. She took a Xanax and Zofran but thinks she may have thrown those up. She has nausea at this time. Denies any headache. She said she also had some chest discomfort associated with this. She has no history of cardiac disease and no recent exertional chest pain. No history of DVT or PE or risk factors. She denies any falls or head trauma. Prior similar symptoms: Yes Recent Illness/Hospitalization: No [facility] Medical History Arthritis Asthma Hay fever Hypertension Lab test negative for COVID-19 virus Home Medications albuterol sulfate 90 mcg/actuation aerosol inhaler (ProAir HFA) 1 inh inhalation ONCE 03/24/21 [History Last Taken Unknown] aspirin 81 mg tablet,delayed release (Adult Aspirin Regimen) 81 mg PO DAILY 03/24/21 [History Last Taken Unknown] budesonide-formoterol HFA 80 mcg-4.5 mcg/actuation aerosol inhaler (Symbicort) 2 puff inhalation BID 03/24/21 [History Last Taken Unknown] denosumab 60 mg/mL subcutaneous syringe (Prolia) 60 mg subcut [id number] 03/24/21 [History Last Taken Unknown] diclofenac potassium 50 mg tablet 50 mg PO DAILY 03/24/21 [History Last Taken Unknown] famotidine 20 mg tablet 20 mg PO DAILY 03/24/21 [History Last Taken Unknown] lisinopril 2.5 mg tablet 2.5 mg PO DAILY 03/24/21 [History Last Taken Unknown] rosuvastatin 5 mg tablet 5 mg PO DAILY 03/24/21 [History Last Taken Unknown] sumatriptan succinate 25 mg tablet (Imitrex) 25 mg PO ONCE 03/24/21 [History Last Taken Unknown] trazodone 50 mg tablet 50 mg PO DAILY 03/24/21 [History Last Taken Unknown] meclizine 25 mg tablet 25 mg PO TID PRN dizziness #20 tabs 06/22/22 [Rx Last Taken Unknown] ondansetron 4 mg disintegrating tablet 4 mg PO Q6H PRN nausea and vomiting #10 tabs 06/22/22 [Rx Last Taken Unknown] Allergy/AdvReac Type Severity Reaction Status Date / Time bees Allergy Unknown unknown Uncoded 06/22/22 09:05 Social History Smoking Status: Never smoker alcohol intake: never ROS ROS ED ROS Narrative Room spinning. Nausea vomiting. Atypical chest pain. Review of Systems ROS Unobtainable: Denies due to encephalopathy Constitutional Constitutional ED: Denies chills or fever(s) Eyes Eyes: Denies blurry vision ENT ENT ED: Denies ear pain Cardiovascular Cardiovascular: Reports chest pain Respiratory/Chest Respiratory/Chest: Denies cough or dyspnea Gastrointestinal Gastrointestinal: Reports nausea and vomiting; Denies abdominal pain, constipation, diarrhea or melena Genitourinary Genitourinary ED: Denies dysuria or hematuria Musculoskeletal Musculoskeletal: Denies arthralgias Integumentary Denies abscess Neurologic Neurologic: Denies headache(s) Psychiatric Psychiatric: Denies anxiety or depression Endocrine Endocrinology: Denies cold intolerance Hematologic/Lymphatic Hematologic/Lymphatic: Reports none Allergic/Immunologic Allergic/Immunologic ED: Denies mouth swelling or tongue swelling EXAM Physical Exam Narrative Exam Narrative: 62-year-old female vital signs are stable afebrile. Pulse ox 100% on room air no signs hypoxia. at bedside. H EENT exam unremarkable. Pupils are round reactive light. Extra motions are intact. No facial droop. Neck nontender. Lungs are clear. Heart regular rhythm rate about 55. No murmur. Abdomen soft nontender. No peritoneal signs. Moving all 4 extremities. Nontender no edema. Neurologically she is awake and alert. No focal motor deficits. Equal symmetrical 5-5 home demonstration agent strength. Dorsi plantarflexion intact. Fingertip to nose within normal limits. NIH 0. Positive Hallpike. History and exam consistent with benign positional vertigo. Const Vital Signs: 06/22/22 09:01 06/22/22 09:48 06/22/22 09:50 Temperature 97.9 F Temperature Source Temporal Pulse Rate 53 L 57 L Respiratory Rate 18 15 Respiratory Effort Normal Non-Labored Respiratory Pattern Normal Blood Pressure 159/85 H 148/79 H Blood Pressure Mean 109 102 Pulse Ox 100 97 Oxygen Delivery Method Room Air Room Air 06/22/22 09:51 06/22/22 11:29 Temperature Temperature Source Pulse Rate 98 Respiratory Rate 14 Respiratory Effort Respiratory Pattern Blood Pressure 146/80 H Blood Pressure Mean 102 Pulse Ox 97 Oxygen Delivery Method Room Air Room Air Positive well developed; Negative for obese, cachectic, contractures or unkempt General Appearance ED: well developed and NAD; Negative for unkempt, cachectic, contractures, cyanotic, diaphoretic or pallor Nutritional Appearance: Negative for cachectic or obese HEENT Reports moist mucous membranes; Denies dry mucous membranes Negative for trauma or tenderness Mouth ED: No dry mucous membranes Mouth: No dry mucous membranes Eyes PERRL and EOMs intact bilaterally General Eye ED: Negative for pale conjunctiva or scleral icterus Neck no lymphadenopathy, supple and no JVD General: Negative for tenderness Lymph Lymphatic: Negative for other Chest Wall inspection of chest normal and palpation of chest normal Chest: Negative for other Resp normal respiratory effort and clear to auscultation bilaterally Effort and Inspection: Negative for retractions Auscultation: Negative for rales, rhonchi or wheezes Cardio regular rhythm, S1 normal heart sound, S2 normal heart sound and no murmurs Rate: bradycardia Rhythm: Negative for abnormal rhythm GI normal to inspection, nondistended, normoactive bowel sounds, non-tender, non-distended and no masses Inspection: Negative for abdominal distention Auscultation: normoactive bowel sounds Palpation: soft; Negative for tender or guarding Back/Spine no CVA tenderness General Back: Negative for CVA tenderness Cervical Spine: Negative for cervical spine tenderness Thoracic Spine / Upper Back: Negative for thoracic spinal tenderness Lumbar Spine / Lower Back: Negative for lumbar spinal tenderness Extremity normal to inspection General Extremety ED: Negative for edema or tenderness General Extremity: Negative for edema Neuro oriented x3, CN's II-XII intact bilaterally and no sensory deficits noted Sensorium / Orientation: alert; Negative for orientation impaired, lethargic, stuporous or other Motor Exam: strength 5/5 throughout Psych mental status grossly normal Appearance: Negative for unkempt Attitude: No agitated Mood & Affect: Negative for depressed or anxious Skin no rashes or lesions noted, no wounds and skin turgor normal General Skin Exam: elasticity normal; Negative for jaundice or pallor Lesions: No lesion noted Rashes: No rashes noted Trauma: Negative for abrasion Wounds: Negative for wounds noted MDM MDM MDM Narrative Medical decision making narrative: ExamPression with vertigo type symptoms. Exam benign. Will be treated with Zofran for nausea. IV Ativan. Screening labs to be obtained because she had atypical nonexertional nonreproducible chest pain which I do not feel is going to be a cardiac etiology. Multiple repeat exams patient progressively continues to feel better after being treated with IV fluids, Zofran and Ativan. Remains normal. She has been able to get up and walk to the bathroom with her . Both are comfortable with her being discharged home. We discussed all of her test results that were normal. She will be written for prescription for Zofran for nausea as needed and Antivert for vertigo. Follow-up with your doctor if not improving or return if worse. Lab Data Attestation: I reviewed the patient's lab results. Lab results narrative: CBC normal. White count of 5.1. H&H of 13.6 and 41. Electrolytes gap of 5 normal BUN and creatinine. Glucose of 132. Troponin 4. Labs: Laboratory Results - last 24 hr 06/22/22 06/22/22 09:30 09:30 WBC 5.1 RBC 4.63 Hgb 13.6 Hct 41.7 MCV 90.1 MCH 29.4 MCHC 32.6 RDW Std Deviation 42.7 RDW Coeff of Leslie 12.9 Plt Count 255 MPV 10.1 Immature Gran % (Auto) 0.200 Neut % (Auto) 81.1 H Lymph % (Auto) 11.3 L Ray % (Auto) 7.0 Eos % (Auto) 0.0 Baso % (Auto) 0.4 Absolute Neuts (auto) 4.2 Absolute Lymphs (auto) 0.58 L Nucleated RBC % 0 Sodium 137 Potassium 3.5 Chloride 101 Carbon Dioxide 31.0 Anion Gap 5 BUN 18 Creatinine 0.69 Estim Creat Clear Calc 66.00 Est GFR (MDRD) Af Amer 111 Est GFR (MDRD) Non-Af 92 BUN/Creatinine Ratio 26.2 H Glucose 132 H Calcium 8.6 Troponin I High Sens 4 Radiography Chest X-Ray - ED: 1 View, Read by ED Physician, Heart, Lungs, Mediastinum, Bony Structures, No Acute Disease and Chronic Changes Diagnostic Testing: Clinical Impression(s) from Imaging Studies Chest X-Ray 06/22/22 09:30 IMPRESSION: The lungs are clear. Dextroscoliosis. Electronically Signed: Jevon Norwood MD at 9:53 EDT , Chest x-ray, portable, single view shows curvature of the thoracic spine. No acute cardiac or pulmonary abnormalities. Interpreted by myself and radiologist. Rhythm Strip Rhythm Strip: Sinus Rhythm Rate: 46 Ectopy: None EKG Initial EKG: Attestation: I personally reviewed and interpreted this EKG as follows: Interpretation: Sinus Rhythm, No Acute Injury Pattern and Sinus Bradycardia Comments: Sinus bradycardia rate of 46 no acute signs of DE nor ischemia nor dysrhythmia. Discharge Plan Triage Chief Complaint: Dizziness ED Provider: Chandana Mcghee Dx/Rx/DC Orders Clinical Impression: Vertigo, Nausea & vomiting Instructions: ED Vertigo, Unspecified, ED Vomiting (Adult) Prescriptions: New ondansetron 4 mg tablet,disintegrating 4 mg PO Q6H PRN (Reason: nausea and vomiting) Qty: 10 0RF meclizine 25 mg tablet 25 mg PO TID PRN (Reason: dizziness) Qty: 20 0RF No Action trazodone 50 mg tablet 50 mg PO DAILY lisinopril 2.5 mg tablet 2.5 mg PO DAILY famotidine 20 mg tablet 20 mg PO DAILY diclofenac potassium 50 mg tablet 50 mg PO DAILY rosuvastatin 5 mg tablet 5 mg PO DAILY albuterol sulfate [ProAir HFA] 90 mcg/actuation HFA aerosol inhaler 1 inh inhalation ONCE budesonide-formoterol [Symbicort] 80-4.5 mcg/actuation HFA aerosol inhaler 2 puff inhalation BID Prolia 60 mg/mL syringe 60 mg subcut [id number] aspirin [Adult Aspirin Regimen] 81 mg tablet,delayed release (DR/EC) 81 mg PO DAILY sumatriptan succinate [Imitrex] 25 mg tablet 25 mg PO ONCE Primary Care Provider: Ness Duggan Referrals: Ness Duggan, DO [Primary Care Provider] - 3-5 Days if not improving Activity Restrictions/Additional Instructions: Plenty of fluids and rest. No driving until you are feeling better. You did receive Ativan today I would not drive today. Zofran as needed for nausea which you can either swallow but if you are too nauseated you can let that dissolve under your tongue. Meclizine also called Antivert for the vertigo. Follow-up with your doctor if not improving or return if feeling worse. All your test today were normal. Disposition Disposition: Home, Self Care
--- NOTE | 2022-06-22 09:30 | RAD_ITS ---
STUDY: X-RAY CHEST REASON FOR EXAM: Female, 62 years old. Chest pain TECHNIQUE: Single AP portable view of the chest. COMPARISON: Comparison is made with prior study dated 11/28/2021. FINDINGS: The lungs are clear and expanded. There is no demonstrated pleural abnormality. Normal size heart. Normal mediastinum and juan miguel. Normal visualized pulmonary arteries. Normal visualized aortic arch and descending thoracic aorta. There is a dextroscoliosis of the thoracic spine. Normal visualized ribs, clavicles, and shoulders. There is no demonstrated abnormality of the visualized soft tissue structures of the upper abdomen. RAD/Chest 1 View (Portable) IMPRESSION: The lungs are clear. Dextroscoliosis. Electronically Signed: Jevon Norwood MD at 9:53 EDT ,
[2022-06-22] MEDS: LORazepam 2 MG/ML Syringe 1 MG IV (09:43)
[2022-06-22] MEDS: Ondansetron 4 MG/2 ML Vial IV (09:43)
[2022-06-22 09:48] VITALS: BP 148/79; PULSE 57; RESP 15; O2SAT 97
[2022-06-22 09:48] LABS: Absolute Lymphocyte Count 0.58 X10^3/uL (0.83-4.51); Absolute Neutrophil Count 4.2 X10^3/uL (2.0-7.7); Basophil# 0.02 X10^3/uL; Basophil% 0.4 % (0-1); Hematocrit 41.7 % (37-47); Hemoglobin 13.6 g/dL (12.0-15.0); Lymphocyte # 0.58 X10^3/ul (0.83-4.51); Lymphocyte % 11.3 % (19-41); Mean Corp Hgb Conc 32.6 g/dL (32-36); Mean Corpuscular Hgb 29.4 pg (27.0-32.0); Mean Corpuscular Volume 90.1 fL (81-99); Mean Platelet Vol. 10.1 fl (6.2-12.0); Monocyte# 0.36 X10^3/uL; NRBC Flagged by Analyzer 0 % (0-5); Neutrophil # 4.17 X10^3/uL (2.7-7.7); Neutrophil % 81.1 % (47-70); POSITIVE DIFFERENTIAL YES; Platelet Count 255 K/mm3 (150-450); RBC Distribution Width CV 12.9 % (11.6-14.6); RBC Distribution Width SD 42.7 fl (35.1-43.9); Red Blood Count 4.63 M/mm3 (4.2-5.4); White Blood Count 5.1 K/mm3 (4.4-11.0)
[2022-06-22 10:05] LABS: Anion Gap 5 (5-15); BUN 18 mg/dL (7-18); BUN/Creat Ratio 26.2 RATIO (10-20); Calcium,Total 8.6 mg/dL (8.5-10.1); Chloride 101 mmol/L (98-107); Creatinine, Serum 0.69 mg/dL (0.55-1.02); EST Glomerular Filtration Rate 92 mL/min (>60); Est Glom Filt Rate - Afr Amer 111 mL/min (>60); Glucose 132 mg/dL (74-106); Potassium 3.5 mmol/L (3.5-5.1); Sodium Level 137 mmol/L (136-145); Troponin-I HS 4 pg/mL (3.0-54.0)
[2022-06-22 10:11] LABS: Differential Indicated SCAN CRITERIA MET
[2022-06-22 11:29] VITALS: BP 146/80; PULSE 98; RESP 14; O2SAT 97
[2022-06-22 12:17] VITALS: BP 131/69; PULSE 72; RESP 15; O2SAT 99
== END 2022-06-22 12:23 | disposition home or self-care (01) ==
PROVIDERS: Emergency Provider Emergency Medicine; PCP Internal Medicine; Visit Provider Emergency Medicine
DX: R42 Dizziness and giddiness (principal); R11.2 Nausea with vomiting, unspecified; R07.89 Other chest pain; I10 Essential (primary) hypertension; Z79.82 Long term (current) use of aspirin; Z79.899 Other long term (current) drug therapy; Z79.51 Long term (current) use of inhaled steroids
CPT/HCPCS: 71045; 80048; 84484; 85025; 93005; 96374; 96375; 99285; A4216; J2405

== ENCOUNTER → 2022-06-23 | Outpatient (CLI) | payer OTHER, SELFPAY ==
--- NOTE | 2022-06-23 15:04 | BI_ITS ---
MAMMOGRAPHY - BILATERAL SCREENING REASON FOR EXAM: Female, 62 years old. Routine annual screening examination. PERTINENT HISTORY: Non-contributory. Remote left stereotactic breast biopsy. TECHNIQUE: Digital bilateral breast michelle (3D mammographic acquisition) in the CC and MLO projections. 2-D mediolateral oblique (MLO) and craniocaudad (CC) views of both breasts were obtained. CAD: Full Field Digital Mammography with Computer Added Detection was performed. COMPARISON: Comparison is made with prior study 06/21/2021 and 06/17/2020. FINDINGS: Breast Composition: There are scattered areas of fibroglandular density. There are no dominant masses or suspicious calcifications. A tissue clip marker is seen in the upper lateral aspect of the left breast. Stable small benign-appearing bilateral axillary lymph nodes. No other significant abnormalities are identified. There has been no significant change since the prior study. BI/SCRN MAMM (CAD)W/MICHELLE BILAT IMPRESSION: Stable bilateral screening mammogram. Yearly follow-up mammogram recommended. (A) ASSESSMENT CATEGORY: BIRADS Category 2: Benign. A letter regarding these results will be sent to the patient by the facility within 30 days. Approximately 10% of breast cancers are not detected by mammography. A normal mammogram should not delay biopsy of a clinically suspicious abnormality. [id number] Electronically Signed: Jevon Norwood MD at 8:18 EDT ,
== END | disposition home or self-care (01) ==
LOC: OPBI 15:03
PROVIDERS: PCP Internal Medicine; Visit Provider Internal Medicine
DX: Z12.31 Encounter for screening mammogram for malignant neoplasm of breast (principal)
CPT/HCPCS: 77063; 77067

== ENCOUNTER 2022-10-12 13:30 | Outpatient (RCR) | payer OTHER, SELFPAY ==
--- NOTE | 2022-09-12 12:54 | HP.PTEVAL ---
Patient's Visit Information VASILIY LUI is a 62 year old F referred to Physical Therapy by Dr. Maxwell Arthur MD with a diagnosis of Peripheral vertigo R. Date of Evaluation: 09/12/22 Physical Therapist: Demetrio Garnica DPT, OCS, CSCS - Visit Plan Frequency: 1-2x /Week Duration: 4-6 Weeks Plan: 1-2x/week for 4-6 weeks as needed for... 1. progress VOR(VOR x 2 H 60 sec given today) and will need ec balance ex. 2. monitor MSQ and positional - Subjective I have vertigo. First episode a year and a half ago. Went comletely away. 6 weeks ago had a bigger episode, could not keep anything down at the time and could not get out of bed. Went to ER and got zofran and ativan. It remained for 5 days ...better upright and worse lying down and turning. Improved a little bit. Was in [place] a couple weeks ago and was swimming to a buoy and got vertigo after that. Now closing eyes in shower requires her to hold due to unsteadiness. Dizzyness is described as nausea but not quite a spin, feels unsteady. That has happened daily in the last week in the shower and walking with dog. No spinning this week. Wooded section makes her dizzy. Sleep is OK. 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 Walks daily and swims a mile but has stopped due to pulled muscle. Hobbies include cooking and can do that. - Objective Walks I into and out of PT today, steps reciprocal without rail. bed and chair trasnfers I. Cervical aROM WFL and without pain. - B hallpike harsh. - roll test. oculomotor: no nystagmus with gaze or head shake. - ocular tilt. - skew eye deviation. Pursuit and saccades are normal. VOR was slow but asymptomatic, VOR x2 slightly symptomatic Horizontal. slight + r head thrust, - L head thrust. - Balance/Special Test Scores Functional Gait Assessment Score: 29 % Disability: 3.3400 CATSIB Score (Max score 120 seconds): 115 Dizziness Score: 26 - Goals Goal 1:: 30/30 FGA Goal Time Frame: 4-6 Weeks Goal 2:: pt without hesitation on foam or walking with ec Goal Time Frame: 4-6 Weeks Goal 3:: Pt feel 100% back to normal symptomatically Goal Time Frame: 4-6 Weeks Goal 4:: DHI score 10 or less. Goal Time Frame: 4-6 Weeks - Rehabilitation Potential Physical Therapy Diagnosis: Likely R peripheral vestibular hypofunction Rehabilitation Potential: Fair - Anticipated Interventions Patient/Client Instruction: Educate patient on: Condition, Plan of Care For the Purpose of:: To increase tolerance to activity/condition/position, To improve balance Therapeutic Exercise to Include: Balance training Comment: adaptation and vestibular ex as needed For the Purpose of:: To improve muscle performance and motor function, To increase tolerance to activity/condition/position, To improve ability of physical actions for home/community/work/leisure Thank you for the opportunity to evaluate your patient. For Medicare and Medicare HMO plans, please review the plan of care and approve it. It will need to be FAXED BACK to us at [phone] for Medicare purposes. For Medicare only, by signing this I certify the plan of care. Please let me know if there are questions or concerns regarding this plan of care. Physician Signature: Date:
--- NOTE | 2022-10-12 13:52 | HP.PTDCSUM ---
It has been my pleasure to treat VASILIY LUI referred by Dr. Maxwell Arthur MD, with the diagnosis of Peripheral vertigo R for a total of 4 visit(s). Discharge Date: 10/12/22 Please see the following information for a summary of their discharge status. Subjective: Dizzyness is pretty good. Haven't had any spinning. Only symptoms is a little lightheadedness now and then, ec adn turning may be off balance now and then. Swimming is going well and no problem. Activities are normal. To Dr. Kumar in October % Improvement: 80 Objective/Function: VOR busy, walking not symptomatic. No probelm with head turns ambulating. Function is very good. Balance is excellent. Goal 1:: FGA Goal Progress: Goal Met Goal 2:: pt without hesitation on foam or walking with ec Goal Progress: Goal Met Goal 3:: Pt feel 100% back to normal symptomatically Goal Progress: 80% Goal 4:: DHI score 10 or less. Goal Progress: Goal Met Plan: d/c to [facility], pt to f/u with doctor in October. If there are questions or concerns regarding this patient's physical therapy, please feel free to call me at [phone]. Thank you for the referral of this patient. Sincerely, Demetrio Garnica, DPT, OCS, CSCS Balance/Gait/Functional tests - Balance/Special Test Scores Functional Gait Assessment Score: 30 % Disability: 0 CATSIB Score (Max score 120 seconds): 115 Dizziness Score: 2
== END 2022-10-12 14:11 | disposition home or self-care (01) ==
LOC: PT 13:30
PROVIDERS: PCP Internal Medicine; Visit Provider Psychiatry & Neurology Neurology
DX: H81.391 Other peripheral vertigo, right ear (principal)
CPT/HCPCS: 97110; 97162; 97530

== ENCOUNTER → 2022-12-28 | Outpatient (CLI) | payer OTHER, SELFPAY ==
--- NOTE | 2022-12-28 08:27 | US_ITS ---
STUDY: ABDOMINAL ULTRASOUND - RIGHT UPPER QUADRANT REASON FOR VISIT: Female, 62 years old fatty liver. TECHNIQUE: Ultrasound evaluation of the right upper quadrant was performed with real-time and static gumzán-scale imaging. TECHNICAL QUALITY: Adequate. COMPARISON: CT of the abdomen, January 13, 2022. FINDINGS: Liver: The liver measures 16 cm. There is normal echogenicity of the liver. The bile ducts are within normal limits. There is hepatic color flow. The direction of portal flow is hepatopetal. There is no demonstrated mass lesion. Gallbladder: Normal distended gallbladder. The gallbladder wall measures 2 mm. There is a negative sonographic Leblanc''s sign. There is no pericholecystic fluid. There are no gallstones. Common Bile Duct (C.B.D.): The common bile duct measures 3 mm. Pancreas: Normal size of the head, body and tail of the pancreas. There is normal echogenicity of the pancreas. There is no demonstrated pancreatic mass or cyst. Right Kidney: Normal size of the right kidney. The right kidney measures 9.5 cm. Normal renal cortex. The right cortex measures 1.6 cm. There is no demonstrated renal mass or cyst. There is no right hydronephrosis. US/Abdomen Limited IMPRESSION: Normal right upper quadrant ultrasound examination. There is no evidence of hepatic steatosis. Electronically Signed: Parish Nieto DO at 17:30 EST ,
== END | disposition home or self-care (01) ==
LOC: US 08:16
PROVIDERS: PCP Internal Medicine; Visit Provider Internal Medicine
DX: K76.0 Fatty (change of) liver, not elsewhere classified (principal)
CPT/HCPCS: 76705

== ENCOUNTER → 2023-03-13 | Outpatient (CLI) | payer OTHER, SELFPAY ==
--- NOTE | 2023-03-13 16:00 | MRI_ITS ---
STUDY: MRA OF THE HEAD WITHOUT CONTRAST REASON FOR EXAM: Female, 62 years old. TIA, LEFT arm numbness TECHNIQUE: 3-D [id number] (TOF) imaging was performed with MIPs. The study was performed unenhanced. COMPARISON: None. FINDINGS: Normal bilateral petrous carotid arteries. Normal right cavernous carotid artery with a normal supraclinoid bifurcation. Normal left cavernous carotid artery with a normal supraclinoid bifurcation. Normal right A1 segments of the anterior cerebral artery. Normal left A1 segments of the anterior cerebral artery. Normal intact anterior communicating artery (ACOM). Normal bilateral A2 segments of the anterior cerebral arteries. Normal right M1 and M2 segments of the middle cerebral arteries, with a normal M1 bifurcation. Normal left M1 and M2 segments of the middle cerebral arteries, with a normal M1 bifurcation. Right posterior communicating artery not visualized consistent with normal variant.). Normal left posterior communicating artery (PCOM). Normal bilateral vertebral arteries. Normal basilar artery with a normal basilar bifurcation. The visualized bilateral superior cerebellar (SCA) arteries are normal. Normal right posterior cerebral artery. Atretic P1 segment of left posterior cerebral consistent with normal variant There is no demonstrated aneurysm of the [place] of [place]. There is no major vessel occlusion or hemodynamically significant stenosis. MRI/MRA Head ONLY without Contrast IMPRESSION: Normal MRA of the head Electronically Signed: Mike Basilio MD at 16:41 EDT ,
== END | disposition home or self-care (01) ==
LOC: MRI 15:36
PROVIDERS: PCP Internal Medicine; Referring Provider Psychiatry & Neurology Neurology; Visit Provider Psychiatry & Neurology Neurology
DX: R29.898 Other symptoms and signs involving the musculoskeletal system (principal); R20.0 Anesthesia of skin; G45.9 Transient cerebral ischemic attack, unspecified
CPT/HCPCS: 70544

== ENCOUNTER → 2023-06-28 | Outpatient (CLI) | payer OTHER, SELFPAY ==
--- NOTE | 2023-06-28 14:22 | BI_ITS ---
MAMMOGRAPHY - BILATERAL SCREENING REASON FOR EXAM: Female, 63 years old. Routine annual screening examination. PERTINENT HISTORY: Non-contributory. Remote left stereotactic breast biopsy. TECHNIQUE: Digital bilateral breast michelle (3D mammographic acquisition) in the CC and MLO projections. 2-D mediolateral oblique (MLO) and craniocaudad (CC) views of both breasts were obtained. CAD: Full Field Digital Mammography with Computer Added Detection was performed. COMPARISON: Comparison is made with prior study dated June 23, 2022 and June 21, 2021. FINDINGS: Breast Composition: There are scattered areas of fibroglandular density. There are no dominant masses or suspicious calcifications. A tissue clip marker is once again seen in the upper lateral aspect of the left breast. No other significant abnormalities are identified. There has been no significant change since the prior study. BI/SCRN MAMM (CAD)W/MICHELLE BILAT IMPRESSION: Stable bilateral screening mammogram. Yearly follow-up mammogram recommended. (A) ASSESSMENT CATEGORY: BIRADS Category 2: Benign. A letter regarding these results will be sent to the patient by the facility within 30 days. Approximately 10% of breast cancers are not detected by mammography. A normal mammogram should not delay biopsy of a clinically suspicious abnormality. [id number] Electronically Signed: Jevon Norwood MD at 15:33 EDT ,
== END | disposition home or self-care (01) ==
LOC: OPBI 14:22
PROVIDERS: PCP Internal Medicine; Referring Provider Internal Medicine; Visit Provider Internal Medicine
DX: Z12.31 Encounter for screening mammogram for malignant neoplasm of breast (principal)
CPT/HCPCS: 77063; 77067

== ENCOUNTER → 2024-01-04 | Outpatient (CLI) | payer OTHER, SELFPAY ==
--- NOTE | 2024-01-04 15:07 | VDLE_ITS ---
Reason For Study: Venous Incompetence RIGHT LEFT CFV is compressible, spontaneous, phasic, CFV is compressible, spontaneous, phasic, competent and demonstrates normal competent, and demonstrates normal augmentation. augmentation. FV is compressible, spontaneous, phasic, FV is compressible, spontaneous, phasic, competent and demonstrates normal competent and demonstrates normal augmentation. augmentation. POP V is compressible, spontaneous, phasic, POP V is compressible, spontaneous, and competent and demonstrates normal phasic. augmentation. T/P Trunk is compressible. T/P Trunk is compressible. PTV is compressible. PTV is compressible. LT PerV is compressible. RT PerV is compressible. Acute deep vein thrombosis is noted in the SFJ is competent and measures 0.55 cm. Gastrocnemius V. It is dilated and GSV proximal thigh measures 0.39 x 0.41 cm. NONCOMPRESSIBLE. GSV at knee measures 0.32 x 0.35 cm. Acute deep vein thrombosis is noted in the GSV is competent throughout. Soleus V. It is dilated and NONCOMPRESSIBLE. SSV proximal calf is competent and measures 0.21 x 0.24 cm. Unable to asses GSV for reflux due to Procedure discovery of DVT. This is a venous duplex using B-mode, color flow and spectral Doppler. Exam performed in department. The exam was diagnostic. Patient was scanned in reverse Trendelenburg position during reflux assessment. A preliminary report was called and/or faxed to the patient's PCP Dr Duggan for treatment. VL/Venous Duplex US - Andriy Extrem Interpretation Summary No evidence for acute deep venous thrombosis right lower extremity Competent right small saphenous vein and great saphenous vein with dimensions a s noted. Acute deep venous thrombosis left gastrocnemius and soleus veins. Assessment for left great saphenous vein incompetence aborted secondary to disc overy of deep venous thrombosis Ordering Physician: Mike Reeves Referring Physician: Ness Duggan D.O. Performed By: Morgan, Brien, RVT
== END | disposition home or self-care (01) ==
PROVIDERS: PCP Internal Medicine; Referring Provider Podiatrist; Visit Provider Podiatrist
DX: I87.2 Venous insufficiency (chronic) (peripheral) (principal)
CPT/HCPCS: 93970

== ENCOUNTER → 2024-01-15 | Outpatient (CLI) | payer OTHER, SELFPAY | END | disposition home or self-care (01) | LOC: OPBD 10:31 | PROVIDERS: PCP Internal Medicine; Referring Provider Internal Medicine; Visit Provider Internal Medicine | DX: R69 Illness, unspecified (principal) ==

== ENCOUNTER → 2024-01-31 | Outpatient (CLI) | payer OTHER, SELFPAY ==
--- NOTE | 2024-01-31 15:03 | BD_ITS ---
STUDY: DUAL ENERGY X-RAY ABSORPTIOMETRY / DXA REASON FOR EXAM: Female, 63 years old. [id number] TECHNIQUE: Bone Mineral Density (BMD) measurements of lumbar spine and bilateral hips were obtained. COMPARISON: Comparison is made with prior study January 03, 2022. FINDINGS: Lumbar Spine (L1-L4): g/cm2 (1.031) / T-score (0.5) / Z-score (2.1) Findings are suggestive of normal bone density with a low fracture risk. Left Femur Total: g/cm2 (0.819) / T-score (-1.0) / Z-score (0.2) Left Femoral Neck: g/cm2 (0.638) / T-score (-1.9) / Z-score (-0.4) Right Femur Total: g/cm2 (0.804) / T-score (-1.1) / Z-score (0.1) Right Femoral Neck: g/cm2 (0.697) / T-score (-1.4) / Z-score (0.1) The T-Scores on the most recent prior examination were: Lumbar Spine (L1-L4): There has been improvement of bone density since the previous examination. Left Femur Total: which represents an improvement of 2.8%. Right Femur Total: which represents no significant change. . BD/Dexa Bone Density Study IMPRESSION: The patient is considered osteopenic as outlined below according to World [employer] Organization (WHO) criteria with a moderate fracture risk. There has been improvement of bone density since the previous examination. Reference Information: The T-score is the number of standard deviations above or below the standard which is normal for young adults at their peak bone mineral density. The World Health Organization (WHO) interprets the T-scores as follows: Above -1 Normal bone density Between -1 and -2.5 Osteopenia Equal to / or below -2.5 Osteoporosis As a practical clinical guideline, osteopenia may be graded as follows: Mild -1 through -1.5 Moderate -1.6 through -2.0 Severe -2.1 through -2.4 The Z-score is the number of standard deviations above or below age-matched controls. A Z-score of less than -1.5 would be considered abnormal. References: 1. NIH Osteoporosis and Related Bone Diseases www osteo.org 2. International Society for Clinical Densitometry www iscd.org 3. National Osteoporosis Foundation www nof.org Electronically Signed: Jevon Norwood MD at 15:12 EDT ,
== END | disposition home or self-care (01) ==
LOC: OPBD 15:02
PROVIDERS: PCP Internal Medicine; Referring Provider Internal Medicine; Visit Provider Internal Medicine
DX: Z78.0 Asymptomatic menopausal state (principal)
CPT/HCPCS: 77080

== ENCOUNTER → 2024-02-26 | Outpatient (CLI) | payer OTHER, SELFPAY ==
--- NOTE | 2024-02-26 09:54 | VDLE_ITS ---
Reason For Study: F/U acute embolism RIGHT LEFT CFV is compressible, spontaneous, phasic, GSV is normal. competent and demonstrates normal CFV is compressible, spontaneous, phasic, augmentation. competent, and demonstrates normal Procedure augmentation. This is a venous duplex using B-mode, color FV is compressible, spontaneous, phasic, flow and spectral Doppler. competent and demonstrates normal Exam performed in department. augmentation. The exam was diagnostic. POP V is compressible, spontaneous, phasic, A preliminary report was called and/or faxed competent and demonstrates normal to Dr. Duggan's office. augmentation. T/P Trunk is compressible. PTV is compressible. LT PerV is compressible. Soleus V and Gastroc V are now compressible. VL/Venous Duplex US, Unilateral Interpretation Summary Deep veins of the left lower extremity are patent and compressible segmentally. There is no evidence of left lower extremity deep vein thrombosis. The left great saphenous vein pravin ears patent and compressible segmentally. Resolution of prior visualized thrombus Ordering Physician: Ness Duggan Referring Physician: Ness Duggan Performed By: Sukhjinder Roe RVT and Student
== END | disposition home or self-care (01) ==
LOC: CVS 09:51
PROVIDERS: PCP Internal Medicine; Referring Provider Internal Medicine; Visit Provider Internal Medicine
DX: I82.409 Acute embolism and thrombosis of unspecified deep veins of unspecified lower extremity (principal)
CPT/HCPCS: 93971

== ENCOUNTER → 2024-04-03 | Outpatient (CLI) | payer OTHER, SELFPAY ==
--- NOTE | 2024-04-03 13:48 | VDLE_ITS ---
Reason For Study: venous insufficiency RIGHT LEFT CFV is compressible, spontaneous, phasic, CFV is compressible, spontaneous, phasic, competent and demonstrates normal competent, and demonstrates normal augmentation. augmentation. Procedure FV is compressible, spontaneous, phasic, This is a venous duplex using B-mode, color competent and demonstrates normal flow and spectral Doppler. augmentation. Exam performed in department. POP V is compressible, spontaneous, phasic, The exam was diagnostic. competent and demonstrates normal A preliminary report was called and/or faxed augmentation. to Dr. Duggan's office. T/P Trunk is compressible. PTV is compressible. LT PerV is compressible. Acute deep vein thrombosis is noted in the Soleus V. It is dilated and NONCOMPRESSIBLE. SFJ is INCOMPETENT and measures .96 cm. GSV proximal thigh measures .55 x .54 cm. GSV at knee measures .39 x .43 cm. GSV INCOMPETENT throughout for greater than 0.5 seconds. SSV proximal calf is competent and measures .19 x .22 cm. VL/Venous Duplex US, Unilateral Interpretation Summary Acute deep vein thrombosis is noted in the left soleus vein. Positive for reflux in the left saphenofemoral junction, great saphenous vein t hroughout. Ordering Physician: Ness Duggan Referring Physician: Ness Duggan Performed By: Ranulfo Roe RVT
== END | disposition home or self-care (01) ==
LOC: CVS 13:45
PROVIDERS: PCP Internal Medicine; Referring Provider Internal Medicine; Visit Provider Internal Medicine
DX: I87.2 Venous insufficiency (chronic) (peripheral) (principal)
CPT/HCPCS: 93971

== ENCOUNTER → 2024-07-03 | Outpatient (CLI) | payer OTHER, SELFPAY ==
--- NOTE | 2024-07-03 14:47 | BI_ITS ---
MAMMOGRAPHY - BILATERAL SCREENING REASON FOR EXAM: Female, 64 years old. Routine annual screening examination. PERTINENT HISTORY: Non-contributory. History of prior left stereotactic breast biopsy. TECHNIQUE: Digital bilateral breast michelle (3D mammographic acquisition) in the CC and MLO projections. 2-D mediolateral oblique (MLO) and craniocaudad (CC) views of both breasts were obtained. CAD: Full Field Digital Mammography with Computer Added Detection was performed. COMPARISON: Comparison is made with prior study June 28, 2023 and June 23, 2022. FINDINGS: Breast Composition: There are scattered areas of fibroglandular density. There are no dominant masses or suspicious calcifications. Stable bilateral fat containing axillary lymph nodes. A tissue clip marker is seen in the deep slightly upper lateral aspect of the left breast. This is unchanged. No other significant abnormalities are identified. There has been no significant change since the prior study. BI/SCRN MAMM (CAD)W/MICHELLE BILAT IMPRESSION: Stable bilateral screening mammogram. Yearly follow-up mammogram recommended. (A) ASSESSMENT CATEGORY: BIRADS Category 2: Benign. A letter regarding these results will be sent to the patient by the facility within 30 days. Approximately 10% of breast cancers are not detected by mammography. A normal mammogram should not delay biopsy of a clinically suspicious abnormality. [id number] Electronically Signed: Jevon Norwood MD at 15:43 EDT ,
== END | disposition home or self-care (01) ==
LOC: OPBI 14:47
PROVIDERS: PCP Internal Medicine; Referring Provider Internal Medicine; Visit Provider Internal Medicine
DX: Z12.31 Encounter for screening mammogram for malignant neoplasm of breast (principal)
CPT/HCPCS: 77063; 77067

== ENCOUNTER → 2024-07-15 | Outpatient (CLI) | payer OTHER, SELFPAY ==
--- NOTE | 2024-07-15 13:07 | ECHOD_ITS ---
Reason For Study: PERICARDIAL EFFUSION Procedure This was a 2D Doppler, Color Flow transthoracic echocardiogram. Exam performed in department. Left Ventricle Normal LV size. The estimated ejection fraction is 65 %. No evidence for diastolic dysfunction. No regional wall motion abnormalities noted. Right Ventricle Normal RV size. Normal systolic function. Atria The left and right atria are normal. No doppler evidence for ASD. Mitral Valve There is no mitral valve stenosis. No mitral valve insufficiency. Tricuspid Valve There is no tricuspid stenosis. Unable to estimate RV systolic pressure due to inadequate jet, pulmonary artery pressure probably normal. Aortic Valve Trisinus/trileaflet aortic valve. Aortic sclerosis, no stenosis. There is no aortic stenosis. No aortic valve insufficiency. Pulmonic Valve There is no pulmonic valvular stenosis. No pulmonic valve insufficiency. Great Vessels Normal aortic root. Pericardium/Pleural Trivial pericardial effusion. MMode/2D Measurements & Calculations LVIDd: 4.2 cm IVSd: 0.82 cm LVOT diam: 2.0 cm LVIDs: 2.7 cm LVPWd: 0.85 cm LVOT area: 3.2 cm2 RVDd: 2.7 cm FS: 35.1 % asc Aorta Diam: 3.3 cm LAV(MOD-bp): 44.2 ml LVAd ap4: 21.9 cm2 LAV(MOD-bp) Indexed: 27.1 ml/m2 LVLd ap4: 7.5 cm LAV(MOD-sp2): 48.7 ml EDV(MOD-sp4): 52.0 ml LAV(MOD-sp4): 39.3 ml EDV(sp4-el): 53.8 ml LVAs ap4: 11.4 cm2 LVLs ap4: 6.0 cm ESV(MOD-sp4): 19.2 ml ESV(sp4-el): 18.3 ml EF(MOD-sp4): 63.0 % EF(sp4-el): 66.0 % LVAd ap2: 18.1 cm2 SV(MOD-sp4): 32.8 ml SV(MOD-sp2): 28.3 ml LVLd ap2: 6.8 cm EDV(MOD-sp2): 41.6 ml EDV(sp2-el): 40.7 ml LVAs ap2: 8.8 cm2 LVLs ap2: 5.2 cm ESV(MOD-sp2): 13.4 ml ESV(sp2-el): 12.5 ml EF(MOD-sp2): 67.9 % SV(sp4-el): 35.5 ml LA A4 area: 14.9 cm2 RA A4 area: 12.0 cm2 Time Measurements MV dec time: 0.25 sec Doppler Measurements & Calculations MV E max bairon: 44.8 cm/sec Lat Peak E' Bairon: 5.7 cm/sec Med Peak E' Bairon: 6.7 cm/sec MV A max bairon: 77.5 cm/sec E/E' lat: 7.8 E/E' med: 6.6 MV E/A: 0.58 MV V2 max: 86.5 cm/sec MV P1/2t max bairon: 47.8 cm/sec Ao V2 max: 123.2 cm/sec MV max P.0 mmHg MV P1/2t: 74.3 msec Ao max P.1 mmHg MV V2 mean: 44.0 cm/sec MV dec slope: 188.6 cm/sec2 Ao V2 mean: 82.6 cm/sec MV mean P.90 mmHg Ao mean P.2 mmHg MV V2 VTI: 16.1 cm MVA(P1/2t): 3.0 cm2 Ao V2 VTI: 25.5 cm MVA(VTI): 4.4 cm2 AV (velocity ratio): 0.88 CAROLYNE(I,D): 2.8 cm2 CAROLYNE(V,D): 2.8 cm2 LV V1 max: 108.4 cm/sec SV(LVOT): 71.5 ml PA V2 max: 83.9 cm/sec LV V1 max P.7 mmHg PA max PG (full): 0.27 mmHg LV V1 mean P.8 mmHg LV V1 mean: 80.0 cm/sec LV V1 VTI: 22.5 cm ECHO/Echo Complete Interpretation Summary The estimated ejection fraction is 65 %. No evidence for diastolic dysfunction. Trivial pericardial effusion. Ordering Physician: Ness Duggan Referring Physician: Ness Dgugan Performed By: Sigrid Nice, LANECS, RVT
== END | disposition home or self-care (01) ==
PROVIDERS: PCP Internal Medicine; Referring Provider Internal Medicine; Visit Provider Internal Medicine
DX: I31.39 Other pericardial effusion (noninflammatory) (principal)
CPT/HCPCS: 93306

== ENCOUNTER → 2024-07-22 | Outpatient (CLI) | payer OTHER, SELFPAY ==
--- NOTE | 2024-07-22 13:41 | VDLE_ITS ---
Reason For Study: Acute thrombosis Procedure LEFT This is a venous duplex using B-mode, color GSV is normal. flow and spectral Doppler. CFV is compressible, spontaneous, phasic, Exam performed in department. competent, and demonstrates normal A preliminary report was called and/or faxed augmentation. to Dr. Duggan. FV is compressible, spontaneous, phasic, competent and demonstrates normal augmentation. POP V is compressible, spontaneous, phasic, competent and demonstrates normal augmentation. T/P Trunk is compressible. PTV is compressible. LT PerV is compressible. Lt SoleusV is non dilated and NON COMPRESSIBLE consistent with intermediate DVT. VL/Venous Duplex US, Unilateral Interpretation Summary Subacute deep vein thrombosis is noted in the left soleus vein. Ordering Physician: Ness Duggan Referring Physician: Ness Duggan Performed By: Rosenda Galvin, HARISH, RVT
== END | disposition home or self-care (01) ==
PROVIDERS: PCP Internal Medicine; Referring Provider Internal Medicine; Visit Provider Internal Medicine
DX: I82.409 Acute embolism and thrombosis of unspecified deep veins of unspecified lower extremity (principal)
CPT/HCPCS: 93971

== ENCOUNTER → 2025-01-26 | Outpatient (CLI) | payer OTHER, SELFPAY ==
--- NOTE | 2025-01-23 19:53 | MRI_ITS ---
PROCEDURE: SPINE CERVICAL (ROUTINE) ([facility]) 01/26/2025 REASON FOR EXAM: MRI OF CERVICAL SPINE WITHOUT CONTRAST TECHNIQUE: Multisequence multiplanar MRI cervical spine was performed without IV contrast. COMPARISON: None. FINDINGS: Cervical vertebral body heights are preserved. Degenerative type marrow signal changes greatest at C4-C6.. T1 bright likely vertebral body hemangiomas most prominently at T1-T2. Thoracic levoscoliosis and mild cervicothoracic dextroscoliosis. Grade 1 anterolisthesis C3-C4. Grade 1 retrolisthesis C4-C5. Trace grade 1 retrolisthesis C5-C6. Trace anterolisthesis at C7-T1. No convincing cord signal abnormality with cord contour abnormalities as below. Diffuse disc desiccation. Additional level by level findings as below: C1-C2: Degenerative changes at the articulation of the dens in the anterior arch of C1 with small posterior likely degenerative soft tissue pannus. C2-3: Small RIGHT paracentral disc protrusion. No significant spinal canal or foraminal stenosis. Mild facet arthropathy. C3-4: Anterolisthesis with disc uncovering. Diffuse disc bulging, prominently asymmetric to the LEFT, contacting the ventral cord without significant contour abnormality uncovertebral arthropathy, [id number]. Mild facet arthropathy. Severe LEFT and mild/moderate RIGHT foraminal stenosis. Mild/moderate spinal canal stenosis. C4-5: Virtually complete loss of disc height. Retrolisthesis with disc uncovering as above. Diffuse disc bulging with posterior disc/osteophyte complexes and LEFT paracentral disc protrusion, with broad-based contact with the ventral cord and associated contour abnormality. Moderate to severe focal spinal canal stenosis with near- complete effacement of CSF. Uncovertebral arthropathy and mild facet arthropathy. Moderate foraminal stenoses. C5-6: Retrolisthesis as above. Near-complete loss of disc height with diffuse disc bulging contacting the ventral cord with mild contour abnormality. Qecehdyi-hi-zibpha focal spinal canal stenosis with near- complete effacement of CSF. Uncovertebral arthropathy. [id number]-[id number]-aunzsl RIGHT and moderate LEFT foraminal stenosis.. C6-7: Disc height loss with diffuse disc bulging. Mild facet arthropathy. Uncovertebral arthropathy. Mild/moderate RIGHT and LEFT foraminal stenosis. Mild focal spinal canal stenosis with incomplete effacement of CSF.. C7-T1: No high-grade foraminal or spinal canal stenosis.. Other: Cervical and lumbar spondylosis on the development advisor, not well evaluated. Diverticulosis. RIGHT maxillary paranasal sinus disease. Thoracic levoscoliosis and mild cervicothoracic dextroscoliosis. 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 MRI/Spine Cervical (Routine) IMPRESSION: 1. Multilevel spondylosis as detailed. Variable spinal canal stenoses up to mo derate/severe at C4-C6. Variable foraminal stenoses up to severe. 2. RIGHT maxillary paranasal sinus disease. 3. Additional description as above. Reading Location: [id number]
== END | disposition home or self-care (01) ==
LOC: MRI 08:16
PROVIDERS: PCP Internal Medicine; Referring Provider Internal Medicine; Visit Provider Internal Medicine
DX: R20.2 Paresthesia of skin (principal)
CPT/HCPCS: 72141

== ENCOUNTER 2025-02-05 13:47 | Outpatient (CLI) | payer OTHER, SELFPAY ==
[2025-02-05 14:00] VITALS: BP 124/71; PULSE 80; RESP 16; TEMP 36.2
[2025-02-05] MEDS: 0.9% NaCl Peripheral Flush Adult IV (14:07)
[2025-02-05] MEDS: 0.9% NaCl IVPB Med Flush (100mL) 15 ML IV (14:07)
[2025-02-05] MEDS: Zoledronic Acid 5 MG 100 ML 300 MG IV (14:10)
== END 2025-02-05 23:59 | disposition home or self-care (01) ==
LOC: MEDOUTP 13:47
PROVIDERS: PCP Internal Medicine; Referring Provider Internal Medicine; Visit Provider Internal Medicine
DX: M85.80 Other specified disorders of bone density and structure, unspecified site (principal)
CPT/HCPCS: 96365; A4216; J3489

== ENCOUNTER → 2025-04-15 | Outpatient (CLI) | payer OTHER, SELFPAY ==
--- NOTE | 2025-04-15 15:46 | VDLE_ITS ---
Reason For Study Reason For Study: LLE SWELLING Procedure LEFT This is a venous duplex using B-mode, color flow and GSV is normal. spectral Doppler. CFV is compressible, spontaneous, phasic, competent, Exam performed in department. and demonstrates normal augmentation. A preliminary report was called and/or faxed to . FV is compressible, spontaneous, phasic, competent Fast @ 4:05 pm @ [phone]. and demonstrates normal augmentation. POP V is compressible, spontaneous, phasic, competent and demonstrates normal augmentation. T/P Trunk is compressible. PTV is compressible. LT PerV is compressible. VL/Venous Duplex US, Unilateral Interpretation Summary Deep veins of the left lower extremity are patent and compressible segmentally. There is no evidence of left lower extremity deep vein thrombosis. The left great saphenous vein appears patent an d compressible segmentally. Ordering Physician: Ness Duggan Referring Physician: Ness Duggan Performed By: Sigrid Nice RDCS, RVT
--- NOTE | 2025-04-15 15:48 | RAD_ITS ---
PROCEDURE: FOOT MIN 3 VIEWS 04/15/2025 REASON FOR EXAM: LEFT FOOT MIDFOOT PAIN TECHNIQUE: FOOT MIN 3 VIEWS COMPARISON: None. FINDINGS: Calcaneal spur formation. Moderate degenerative joint disease of the tarsal joints. Mild degenerative joint disease of the remaining visualized joints. No fracture or dislocation is seen. RAD/Foot min 3 Views IMPRESSION: Degenerative joint disease, more prominent in the tarsal joints. [facility]
--- NOTE | 2025-04-15 15:48 | RAD_ITS ---
PROCEDURE: HAND MIN 3 VIEWS 04/15/2025 REASON FOR EXAM: MCP JOINT SWELLING, THUMB PAIN TECHNIQUE: HAND MIN 3 VIEWS COMPARISON: None. FINDINGS: Moderate degenerative joint disease of the 1st carpometacarpal joint. Mild overlying soft tissue edema and swelling. Mild degenerative joint disease of the remaining visualized joints. No fracture or dislocation is seen. No lytic or blastic bone lesion is noted. RAD/Hand Min 3 Views IMPRESSION: Moderate degenerative joint disease of the 1st carpometacarpal joint. Mild ove rlying soft tissue edema and swelling. Mild degenerative joint disease of the remaining joints. Reading Location: [facility]
--- NOTE | 2025-04-15 16:05 | RAD_ITS ---
PROCEDURE: WRIST MIN 3 VIEWS 04/15/2025 REASON FOR EXAM: WRIST PAIN. TECHNIQUE: WRIST MIN 3 VIEWS COMPARISON: None. FINDINGS: Moderate degenerative joint disease of the 1st carpometacarpal joint. Mild degenerative joint disease of the remaining carpal joints. No fracture or dislocation is seen. No lytic or blastic bone lesion is noted. RAD/Wrist min 3 Views IMPRESSION: Moderate degenerative joint disease of the 1st carpometacarpal joint. No radiographic evidence of an acute bone abnormality. Reading [facility]
== END | disposition home or self-care (01) ==
LOC: CVS 15:42
PROVIDERS: PCP Internal Medicine; Referring Provider Internal Medicine; Visit Provider Internal Medicine
DX: M79.89 Other specified soft tissue disorders (principal); M79.672 Pain in left foot; M79.644 Pain in right finger(s); M25.531 Pain in right wrist
CPT/HCPCS: 73110; 73130; 73630; 93971

== ENCOUNTER → 2025-07-07 | Outpatient (CLI) | payer OTHER, SELFPAY ==
--- NOTE | 2025-07-07 15:45 | BI_ITS ---
EXAM: SCRN MAMM (CAD)W/MICHELLE BILAT DATE: 07/07/2025 CLINICAL HISTORY: F, Age 65 y/o , SCREENING No family history. Prior left stereotactic breast biopsy. TECHNIQUE: Procedure Code: [id number] Modality: MG Procedure: SCRN MAMM (CAD)W/MICHELLE BILAT COMPARISON: Prior exam(s) dated July 03, 2024.. FINDINGS: TISSUE DENSITY: The breasts are heterogeneously dense, which may obscure small masses. Bilateral Breast Mammographic Findings: No significant masses, calcifications or other abnormalities are identified. A tissue clip marker is seen in the upper lateral aspect of the left breast. Tiny microcalcifications persist. No suspicious masses, areas of developing architectural distortion, or suspicious calcifications. There has been no significant interval change. BI/SCRN MAMM (CAD)W/MICHELLE BILAT IMPRESSION: Stable bilateral screening mammogram. OVERALL FINAL ASSESSMENT BI-RADS 2: BENIGN RECOMMENDATION: Routine annual follow-up in 1 Year A letter with findings and recommendations will be mailed to the patient. Reading Location: [place] [id number]
== END | disposition home or self-care (01) ==
LOC: OPBI 15:43
PROVIDERS: PCP Internal Medicine; Referring Provider Internal Medicine; Visit Provider Internal Medicine
DX: Z12.31 Encounter for screening mammogram for malignant neoplasm of breast (principal)
CPT/HCPCS: 77063; 77067